=== PATIENT | female | born 1995 | race Caucasian/White ===

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

== ENCOUNTER 2017-03-02 00:13 | Emergency (ER) | payer OTHER ==
[~2017-03-02] VITALS: Ht 157.5 cm; Wt 68.0 kg
[2017-03-02 00:19] VITALS: BP 140/79
[2017-03-02] MEDS ORDERED: KEPP1TAB2 PO (00:24)
[2017-03-02] MEDS ORDERED: TIZA4CAP3 PO (00:24)
[2017-03-02] MEDS ORDERED: MELO7.5T6 PO (00:24)
== END 2017-03-02 02:05 | disposition left against medical advice (07) ==
LOC: M ED 02:03
DX: M54.5 Low back pain (principal); Z53.21 Procedure and treatment not carried out due to patient leaving prior to being seen by health care provider

== ENCOUNTER 2017-05-25 21:42 | Emergency (ER) | payer OTHER ==
[~2017-05-25] VITALS: Ht 154.9 cm; Wt 136.0 kg
[~2017-05-25 21:42] MED LIST: KEPP1TAB2 PO; MELO7.5T7 PO; TIZA4CAP3 PO
[2017-05-25] MEDS ORDERED: KEPP1TAB PO (23:44)
[2017-05-25] MEDS ORDERED: NORCOTAB PO (23:44)
[2017-05-25] MEDS ORDERED: NORCO 5/325MG TABLET (BULK FOR ED) PO ONE (23:45)
[2017-05-25] MEDS ORDERED: KEPP500T13 (23:47)
[2017-05-26] MEDS ORDERED: levETIRAcetam 250MG TABLET (KEPPRA) PO ONE
[2017-05-26 00:10] VITALS: BP 113/69
== END 2017-05-26 00:14 | disposition home or self-care (01) ==
LOC: M ED 21:42
DX: Z76.0 Encounter for issue of repeat prescription (principal); K01.1 Impacted teeth; G40.909 Epilepsy, unspecified, not intractable, without status epilepticus; Z79.899 Other long term (current) drug therapy; F17.210 Nicotine dependence, cigarettes, uncomplicated

== ENCOUNTER 2017-07-22 18:23 | Emergency (ER) | payer OTHER ==
[~2017-07-22] VITALS: Ht 152.4 cm; Wt 65.0 kg
[~2017-07-22 18:23] MED LIST changes: +KEPP1TAB PO; +KEPP500T13; +NORCOTAB PO
--- NOTE | 2017-07-22 20:00 | REPUSA ---
Clinical history: bleeding, cramping. Findings: Real-time transabdominal and transvaginal ultrasound images of the pelvis were obtained. An anteverted uterus is noted, measuring 8.7 x 4.2 x 4.4 cm. The uterus demonstrates normal echotexture and echogenicity. The endometrial stripe appears unremarkable, without a discrete gestational sac. T he right ovary measures 3.2 x 2.8 x 2.3 cm. The left ovary measures 4.3 x 2.6 x 3.4 cm. There is a co mplex left ovarian cyst measuring 2.1 x 1.5 x 2.2 cm. No adnexal masses are seen. Color Doppler flow is seen within both ovaries. There is no evidence of free fluid. Impression: 1. No evidence of an intrauterine gestational sac. 2. Complex likely hemorrhagic left ovarian cyst, possibly a corpus luteum cyst. 3. Differential diagnosis includes early , missed , or ectopic . Follow-up with serial serum beta hCG levels is recommended for further evaluation.
[2017-07-22 20:44] VITALS: BP 132/68
== END 2017-07-22 20:47 | disposition home or self-care (01) ==
LOC: M ED 18:23
DX: O34.81 Maternal care for other abnormalities of pelvic organs, first trimester (principal); N83.202 Unspecified ovarian cyst, left side; O99.331 Smoking (tobacco) complicating pregnancy, first trimester; F17.210 Nicotine dependence, cigarettes, uncomplicated; Z3A.01 Less than 8 weeks gestation of pregnancy

== ENCOUNTER → 2017-08-16 | Outpatient (CLI) | payer OTHER ==
[2017-08-16 18:14] LABS: BASO % 0.3 % (0.0-1.0); EOS # 0.1 10^3/uL (0.0-0.50); EOS % 0.7 % (0.0-3.0); IMMATURE GRANULOCYTE % 0.4 % (0-0); LYMPH # 2.4 10^3/uL (1.5-6.5); LYMPH % 17.7 % (24.0-44.0); MEAN CORPUSCULAR HEMOGLOBIN 29.3 pg (27.0-33.0); MEAN CORPUSCULAR HGB CONC 33.4 g/dl (32.0-36.5); MEAN CORPUSCULAR VOLUME 87.5 fl (80.0-96.0); MONO # 1.1 10^3/uL (0.0-0.8); MONO % 8.1 % (0.0-5.0); NEUTROPHILS # 9.7 10^3/uL (1.8-7.7); NEUTROPHILS % 72.8 % (36.0-66.0); PLATELET COUNT, AUTOMATED 328 10^3/uL (150-450); WHITE BLOOD COUNT 13.4 10^3/uL (4.0-10.0)
[2017-08-18 10:41] LABS: HBsAg Prenatal NEGATIVE (NEGATIVE)
== END ==
LOC: M SMT 14:45
PROVIDERS: ATTEND Obstetrics & Gynecology
DX: O30.041 Twin pregnancy, dichorionic/diamniotic, first trimester (principal); Z3A.01 Less than 8 weeks gestation of pregnancy

== ENCOUNTER → 2017-09-14 | Outpatient (CLI) | payer OTHER ==
--- NOTE | 2017-09-15 14:37 | REP ---
Clinical: Dating and viability. When gestation. Technique: Transabdominal first trimester obstetrical ultrasound with color Doppler evaluation. Findings: Diamniotic dichorionic twin gestation is appreciated. Twin A [place]-rump length of 6.2 cm corresponds to 12 weeks 4 days gestational age with estimated date of delivery 03/25/2018. heart rate equals 168 beats per minute. No gross abnormalities are identified. Twin B [place]-rump length of 5.9 cm corresponds to 12 weeks 3 days gestational age with estimated date of delivery 03/26/2018. heart rate equals 163 beats per minute. No gross abnormalities are identified. Impression: 1. Diamniotic dichorionic twin gestation measuring at approximately 12 weeks 3 days gestational age. No gross abnormalities are identified. 2. Complete anatomical assessment should be performed and 19-20 weeks. Signed by Severo English MD 09/15/2017 03:02 A
== END ==
LOC: M RAD 17:10
PROVIDERS: ATTEND Advanced Practice Midwife
DX: O30.041 Twin pregnancy, dichorionic/diamniotic, first trimester (principal); Z3A.12 12 weeks gestation of pregnancy

== ENCOUNTER → 2017-09-14 | Outpatient (REF) | payer OTHER | LOC: M LAB REF 16:52 | PROVIDERS: ATTEND Advanced Practice Midwife | DX: O30.041 Twin pregnancy, dichorionic/diamniotic, first trimester (principal); Z3A.13 13 weeks gestation of pregnancy ==

== ENCOUNTER 2017-10-27 15:31 | Emergency (ER) | payer OTHER ==
[2017-10-27 16:43] LABS: INFLUENZA A AMPLIFICATION NEGATIVE (NEGATIVE); INFLUENZA B AMPLIFICATION NEGATIVE (NEGATIVE)
[2017-10-27] MEDS: IPRATROPIUM 0.5MG/ALBUTEROL 2.5MG INH SOL UD 3ML (DUONEB)(J7620) NEB (17:13)
[2017-10-27] MEDS: ALBUTEROL SULFATE 2.5 MG/0.5 ML INH NEB SOLN NEB (17:13)
== END 2017-10-27 18:05 | disposition home or self-care (01) ==
LOC: M ED 15:31
DX: O99.511 Diseases of the respiratory system complicating pregnancy, first trimester (principal); J20.9 Acute bronchitis, unspecified; Z3A.10 10 weeks gestation of pregnancy
CPT/HCPCS: 71045

== ENCOUNTER → 2017-11-01 | Outpatient (CLI) | payer OTHER | LOC: M RAD 12:03 | DX: O30.042 Twin pregnancy, dichorionic/diamniotic, second trimester (principal); Z3A.19 19 weeks gestation of pregnancy | CPT/HCPCS: 76816 ==

== ENCOUNTER → 2017-11-24 | Outpatient (CLI) | payer OTHER | LOC: M RAD 18:14 | DX: Z34.02 Encounter for supervision of normal first pregnancy, second trimester (principal) | CPT/HCPCS: 76816 ==

== ENCOUNTER → 2017-12-06 | Outpatient (REF) | payer OTHER | LOC: M LAB REF 13:05 | DX: O30.042 Twin pregnancy, dichorionic/diamniotic, second trimester (principal) | CPT/HCPCS: 87086 ==

== ENCOUNTER 2017-12-11 10:15 | Outpatient (CLI) | payer OTHER ==
[2017-12-11] MEDS: LACTATED RINGER'S 1000 ML IV (10:59)
[2017-12-11] MEDS ORDERED: MAGNESIUM *L&D* 4 GM/100 ML BAG (40MG/ML) (J3475) As Ordered (11:11)
[2017-12-11] MEDS ORDERED: levETIRAcetam INJection 500 MG in D5W MINI-BAG PLUS 100 ML IV (11:15)
[2017-12-11] MEDS: levETIRAcetam INJection 500 MG in D5W MINI-BAG PLUS 100 ML IV ×2 (11:17→11:30)
[2017-12-11] MEDS: MAGNESIUM *L&D* 4 GM/100 ML BAG (40MG/ML) (J3475) IV (11:25)
[2017-12-11] MEDS ORDERED: MAGNESIUM SULFATE 4% INJ 20GM/500ML (40MG/ML) (J3475) As Ordered (11:26)
[2017-12-11 11:45] LABS: HEMATOCRIT 28.4 % (36.0-47.0); HEMOGLOBIN 9.8 g/dl (12.0-16.0); MEAN CORPUSCULAR HEMOGLOBIN 30.6 pg (27.0-33.0); MEAN CORPUSCULAR HGB CONC 34.5 g/dl (32.0-36.5); MEAN CORPUSCULAR VOLUME 88.8 fl (80.0-96.0); PLATELET COUNT, AUTOMATED 237 10^3/uL (150-450); RED CELL DISTRIBUTION WIDTH 13.9 % (11.5-14.5); WHITE BLOOD COUNT 16.2 10^3/uL (4.0-10.0)
[2017-12-11] MEDS: MAG Sulf (OBGYN) 20GM/500ML 20,000 MG in APPROPRIATE DILUENT 1 EA IV (11:45)
[2017-12-11] MEDS: LR 1,000 ML IV (11:48)
[2017-12-11 12:55] LABS: APPEARANCE, URINE CLEAR (CLEAR); BACTERIA, URINE AUTO NEGATIVE (NEGATIVE); BILIRUBIN, URINE AUTO NEGATIVE (NEGATIVE); BLOOD, URINE BLOOD NEGATIVE (NEGATIVE); COLOR, URINE COLORLESS (YELLOW); GLUCOSE, URINE (UA) AUTO NEGATIVE (NEGATIVE); KETONE, URINE AUTO NEGATIVE (NEGATIVE); LEUKOCYTE ESTERASE, URINE AUTO NEGATIVE (NEGATIVE); NITRITE, URINE AUTO NEGATIVE (NEGATIVE); PROTEIN, URINE AUTO NEGATIVE (NEGATIVE); RBC, URINE AUTO 1 /HPF (0-3); SQUAMOUS EPITHELIAL CELL UR AU 0 /HPF (0-6); UROBILINOGEN, URINE AUTO 0.2 mg/dL (0.0-2.0); WBC, URINE AUTO 0 /HPF (0-3)
[2017-12-11 13:18] LABS: AMPHETAMINES URINE REFLEX NEGATIVE (NEGATIVE); BARBITURATES URINE REFLEX NEGATIVE (NEGATIVE); BENZODIAZEPINES URINE REFLEX NEGATIVE (NEGATIVE); CANNABINOIDS URINE REFLEX NEGATIVE (NEGATIVE); COCAINE METABOLITE URINE REFLE NEGATIVE (NEGATIVE); METHADONE URINE REFLEX NEGATIVE (NEGATIVE); OPIATES URINE REFLEX NEGATIVE (NEGATIVE); PHENCYCLIDINE URINE REFLEX NEGATIVE (NEGATIVE)
[2017-12-11 14:22] LABS: CHLAMYDIA DNA AMPLIFICATION NEGATIVE (NEGATIVE); GC DNA AMPLIFICATION NEGATIVE (NEGATIVE)
[2017-12-11] MEDS: ACETAMINOPHEN 500 MG TAB PO (17:50)
== END 2017-12-11 18:24 | disposition home or self-care (01) ==
LOC: M LDO 10:15
DX: O30.042 Twin pregnancy, dichorionic/diamniotic, second trimester (principal); Z3A.24 24 weeks gestation of pregnancy; O99.352 Diseases of the nervous system complicating pregnancy, second trimester; G40.909 Epilepsy, unspecified, not intractable, without status epilepticus; E03.9 Hypothyroidism, unspecified; J45.909 Unspecified asthma, uncomplicated; O99.512 Diseases of the respiratory system complicating pregnancy, second trimester; O99.332 Smoking (tobacco) complicating pregnancy, second trimester; Z79.899 Other long term (current) drug therapy; O99.282 Endocrine, nutritional and metabolic diseases complicating pregnancy, second trimester
CPT/HCPCS: J3475

== ENCOUNTER 2017-12-18 19:53 | Emergency (ER) | payer OTHER ==
[2017-12-18 20:15] LABS: BASO # 0.1 10^3/uL (0.0-0.2); BASO % 0.3 % (0.0-1.0); EOS # 0.3 10^3/uL (0.0-0.50); EOS % 1.6 % (0.0-3.0); HEMOGLOBIN 10.2 g/dl (12.0-16.0); IMMATURE GRANULOCYTE % 1.7 % (0-3.0); LYMPH # 2.3 10^3/uL (1.5-6.5); LYMPH % 12.8 % (24.0-44.0); MEAN CORPUSCULAR HEMOGLOBIN 30.9 pg (27.0-33.0); MEAN CORPUSCULAR VOLUME 90.9 fl (80.0-96.0); MONO # 0.9 10^3/uL (0.0-0.8); NEUTROPHILS # 13.9 10^3/uL (1.8-7.7); NEUTROPHILS % 78.6 % (36.0-66.0); PLATELET COUNT, AUTOMATED 214 10^3/uL (150-450); RED CELL DISTRIBUTION WIDTH 13.7 % (11.5-14.5); WHITE BLOOD COUNT 17.7 10^3/uL (4.0-10.0)
[2017-12-18 20:37] LABS: KETONE, URINE AUTO RFX NEGATIVE (NEGATIVE); NITRITE, URINE AUTO RFX NEGATIVE (NEGATIVE); RBC, URINE AUTO RFX 6 /HPF (0-3); SPECIFIC GRAVITY UR AUTO RFX 1.011 (1.002-1.035); SQUAM EPITHELIAL CELL UR AURFX 11 /HPF (0-6); WBC, URINE AUTO RFX 8 /HPF (0-3)
[2017-12-18 20:39] LABS: ALBUMIN 2.7 GM/DL (3.2-5.2); ALBUMIN/GLOBULIN RATIO 0.66 (1.00-1.93); ALKALINE PHOSPHATASE 160 U/L (45-117); ALT/SGPT 11 U/L (12-78); ANION GAP 10 MEQ/L (8-16); AST/SGOT 24 U/L (7-37); BILIRUBIN,DIRECT < 0.1 MG/DL (0.0-0.2); BILIRUBIN,TOTAL 0.2 MG/DL (0.2-1.0); BLOOD UREA NITROGEN 3 MG/DL (7-18); CALCIUM LEVEL 8.4 MG/DL (8.5-10.1); CARBON DIOXIDE LEVEL 20 MEQ/L (21-32); CHLORIDE LEVEL 111 MEQ/L (98-107); GLUCOSE, FASTING 74 MG/DL (70-100); POTASSIUM SERUM 3.8 MEQ/L (3.5-5.1); SODIUM LEVEL 141 MEQ/L (136-145); TOTAL PROTEIN 6.8 GM/DL (6.4-8.2)
[2017-12-18 20:47] LABS: LEUKOCYTE ESTERASE UR AUTO RFX 3+ (NEGATIVE)
[2017-12-18] MEDS: levETIRAcetam 250MG TABLET (KEPPRA) PO (21:01)
[2017-12-18] MEDS: NITROFURANTOIN (MACROBID) 100 MG CAP PO (21:01)
== END 2017-12-18 21:10 | disposition admitted as inpatient to this hospital (09) ==
LOC: M ED 19:53
DX: O99.352 Diseases of the nervous system complicating pregnancy, second trimester (principal); G40.319 Generalized idiopathic epilepsy and epileptic syndromes, intractable, without status epilepticus; O23.42 Unspecified infection of urinary tract in pregnancy, second trimester; Z3A.26 26 weeks gestation of pregnancy; O99.332 Smoking (tobacco) complicating pregnancy, second trimester; F17.210 Nicotine dependence, cigarettes, uncomplicated; Z79.899 Other long term (current) drug therapy
CPT/HCPCS: 80076

== ENCOUNTER 2017-12-18 21:11 | Outpatient (CLI) | payer OTHER | END 2017-12-18 21:55 | disposition home or self-care (01) | LOC: M LDO 21:11 | DX: O99.89 Other specified diseases and conditions complicating pregnancy, childbirth and the puerperium (principal); Z3A.25 25 weeks gestation of pregnancy; O30.042 Twin pregnancy, dichorionic/diamniotic, second trimester; O99.332 Smoking (tobacco) complicating pregnancy, second trimester; F17.210 Nicotine dependence, cigarettes, uncomplicated; O99.352 Diseases of the nervous system complicating pregnancy, second trimester; O99.342 Other mental disorders complicating pregnancy, second trimester; O99.512 Diseases of the respiratory system complicating pregnancy, second trimester; G40.319 Generalized idiopathic epilepsy and epileptic syndromes, intractable, without status epilepticus; O23.42 Unspecified infection of urinary tract in pregnancy, second trimester; J45.909 Unspecified asthma, uncomplicated; F31.9 Bipolar disorder, unspecified; Z91.14 Patient's other noncompliance with medication regimen; Z79.899 Other long term (current) drug therapy ==

== ENCOUNTER → 2017-12-28 | Outpatient (CLI) | payer OTHER | LOC: M RAD 13:00 | DX: Z36.9 Encounter for antenatal screening, unspecified (principal); O30.042 Twin pregnancy, dichorionic/diamniotic, second trimester; Z3A.27 27 weeks gestation of pregnancy | CPT/HCPCS: 76816 ==

== ENCOUNTER 2018-01-01 12:07 | Outpatient (CLI) | payer OTHER | END 2018-01-01 13:18 | disposition home or self-care (01) | LOC: M LDO 12:07 | DX: O36.8120 Decreased fetal movements, second trimester, not applicable or unspecified (principal); Z3A.27 27 weeks gestation of pregnancy ==

== ENCOUNTER 2018-01-17 22:52 | Inpatient (IN) | payer OTHER ==
[2018-01-18] MEDS ORDERED: LR 1,000 ML IV
[2018-01-18] MEDS ORDERED: MAGNESIUM *L&D* 4 GM/100 ML BAG (40MG/ML) (J3475) As Ordered (00:02)
[2018-01-18] MEDS: BETAMETHASONE SOLUSPAN 6MG/ML INJ 5ML (J0702) IM (00:15)
[2018-01-18] MEDS: LACTATED RINGER'S 1000 ML IV (00:15)
[2018-01-18] MEDS: MAG Sulf (L&D) 4 GM/100 ML 4 GM in APPROPRIATE DILUENT 1 EA IV (00:15)
[2018-01-18] MEDS ORDERED: MAG Sulf (OBGYN) 20GM/500ML 20,000 MG in APPROPRIATE DILUENT 1 EA IV (00:26)
[2018-01-18 00:35] LABS: HEMATOCRIT 41.2 % (36.0-47.0); HEMOGLOBIN 13.8 g/dl (12.0-15.5); MEAN CORPUSCULAR HEMOGLOBIN 29.7 pg (27.0-33.0); MEAN CORPUSCULAR HGB CONC 33.5 g/dl (32.0-36.5); MEAN CORPUSCULAR VOLUME 88.8 fl (80.0-96.0); PLATELET COUNT, AUTOMATED 173 10^3/uL (150-450); RED BLOOD COUNT 4.64 10^6/uL (4.00-5.40); WHITE BLOOD COUNT 15.1 10^3/uL (4.0-10.0)
[2018-01-18] MEDS: BICITRA 30ML SOLN UDC PO (00:36)
[2018-01-18 01:19] LABS: AMPHETAMINES URINE REFLEX NEGATIVE (NEGATIVE); BARBITURATES URINE REFLEX NEGATIVE (NEGATIVE); BENZODIAZEPINES URINE REFLEX NEGATIVE (NEGATIVE); CANNABINOIDS URINE REFLEX NEGATIVE (NEGATIVE); COCAINE METABOLITE URINE REFLE NEGATIVE (NEGATIVE); METHADONE URINE REFLEX NEGATIVE (NEGATIVE); OPIATES URINE REFLEX NEGATIVE (NEGATIVE); PHENCYCLIDINE URINE REFLEX NEGATIVE (NEGATIVE)
[2018-01-18 01:33] LABS: CORD GAS ABE A -4.7; CORD GAS ABE V -2.7; CORD GAS HCO3 A 21.6 MEQ/L; CORD GAS HCO3 V 23.6 MEQ/L; CORD GAS O2 SAT A 21.5 %; CORD GAS O2 SAT V 39.6 %; CORD GAS PCO2 A 44.6 mmHg; CORD GAS PCO2 V 46.4 mmHg; CORD GAS PH A 7.303 UNITS; CORD GAS PH V 7.324 UNITS; CORD GAS PO2 A 12.6 mmHg
[2018-01-18 01:37] LABS: CORD GAS ABE A -2.7; CORD GAS ABE V -4.7; CORD GAS HCO3 A 23.3 MEQ/L; CORD GAS HCO3 V 20.1 MEQ/L; CORD GAS O2 SAT A 52.8 %; CORD GAS PCO2 A 44.8 mmHg; CORD GAS PCO2 V 36.8 mmHg; CORD GAS PH A 7.334 UNITS; CORD GAS PH V 7.355 UNITS; CORD GAS PO2 A 20.3 mmHg; CORD GAS SBC A 21.2 MEQ/L; CORD GAS SBC V 19.9 MEQ/L; CORD GAS TCO2 A 24.7 MEQ/L; CORD GAS TCO2 V 21.2 MEQ/L
[2018-01-18] MEDS ORDERED: RHOGAM 300 MCG (1500 IU) INJ (J2790) IM (01:45)
[2018-01-18] MEDS ORDERED: MEASLES,MUMPS,RUBELLA VACCINE INJ (MMR-II) (90707) SC (01:45)
[2018-01-18] MEDS: LR 1,000 ML IV ×4 (02:00→17:40)
[2018-01-18] MEDS ORDERED: fentaNYL 100 MCG/2 ML INJECTION (J3010) IV (02:00)
[2018-01-18] MEDS ORDERED: NALBUPHINE HCL 10 MG/ML AMP (J2300) IV (02:00)
[2018-01-18] MEDS ORDERED: ONDANSETRON 4MG/2ML VIAL (J2405) IV ×2 (02:00)
[2018-01-18] MEDS ORDERED: METOCLOPRAMIDE INJ 10MG/2ML VIAL (J2765) IV (02:00)
[2018-01-18] MEDS ORDERED: NALOXONE INJ 0.4 MG/1 ML VIAL (J2310) IV ×2 (02:00)
[2018-01-18] MEDS ORDERED: KETOROLAC 30 MG/ML VIAL (J1885) As Ordered (02:17)
[2018-01-18] MEDS ORDERED: ONDANSETRON 4MG/2ML VIAL (J2405) As Ordered (02:17)
[2018-01-18] MEDS: KETOROLAC 30 MG/ML VIAL (J1885) IV ×4 (02:29→20:48)
[2018-01-18] MEDS: ONDANSETRON 4MG/2ML VIAL (J2405) IV (02:29)
[2018-01-18] MEDS: NALBUPHINE HCL 10 MG/ML AMP (J2300) IV (03:44)
[2018-01-18] MEDS: PERCOCET 5MG/325MG TAB PO ×2 (06:31→17:58)
[2018-01-18] MEDS: PRENATAL VITAMINS CHEWABLE TABLET PO (08:27)
[2018-01-18] MEDS: levETIRAcetam 250MG TABLET (KEPPRA) PO ×2 (09:20→20:48)
[2018-01-19] MEDS: PERCOCET 5MG/325MG TAB PO ×2 (02:37→08:32)
[2018-01-19] MEDS: IBUPROFEN 800 MG TAB PO (04:52)
[2018-01-19 07:06] LABS: HEMATOCRIT 23.4 % (36.0-47.0); MEAN CORPUSCULAR HEMOGLOBIN 30.2 pg (27.0-33.0); MEAN CORPUSCULAR HGB CONC 32.9 g/dl (32.0-36.5); MEAN CORPUSCULAR VOLUME 91.8 fl (80.0-96.0); PLATELET COUNT, AUTOMATED 199 10^3/uL (150-450); RED BLOOD COUNT 2.55 10^6/uL (4.00-5.40); RED CELL DISTRIBUTION WIDTH 13.8 % (11.5-14.5); WHITE BLOOD COUNT 18.9 10^3/uL (4.0-10.0)
[2018-01-19 07:11] LABS: HEMOGLOBIN 7.7 g/dl (12.0-15.5)
[2018-01-19] MEDS: PRENATAL VITAMINS CHEWABLE TABLET PO (08:31)
[2018-01-19] MEDS: levETIRAcetam 250MG TABLET (KEPPRA) PO (08:32)
== END 2018-01-19 10:30 | disposition home or self-care (01) | DRG 540 ==
LOC: M LDO 22:52 → M OBS 01-18 03:15 → M LDI 23:57
PROVIDERS: Advanced Practice Midwife
PROC: 10D00Z1 Extraction of Products of Conception, Low, Open Approach (ICD-10-PCS; principal; 2018-01-18 00:42)
DX: O60.14X0 Preterm labor third trimester with preterm delivery third trimester, not applicable or unspecified (principal); O99.354 Diseases of the nervous system complicating childbirth; Z37.2 Twins, both liveborn; O30.043 Twin pregnancy, dichorionic/diamniotic, third trimester; O99.284 Endocrine, nutritional and metabolic diseases complicating childbirth; Z3A.29 29 weeks gestation of pregnancy; O32.1XX0 Maternal care for breech presentation, not applicable or unspecified; G40.909 Epilepsy, unspecified, not intractable, without status epilepticus; Z91.19 Patient's noncompliance with other medical treatment and regimen; E03.9 Hypothyroidism, unspecified; F17.200 Nicotine dependence, unspecified, uncomplicated; O99.334 Smoking (tobacco) complicating childbirth; Z79.899 Other long term (current) drug therapy

== ENCOUNTER → 2018-04-21 | Outpatient (REF) | payer OTHER ==
[2018-04-21 17:10] LABS: APPEARANCE, URINE HAZY (CLEAR); BACTERIA, URINE AUTO NEGATIVE (NEGATIVE); BILIRUBIN, URINE AUTO NEGATIVE (NEGATIVE); BLOOD, URINE BLOOD 2+ (NEGATIVE); COLOR, URINE YELLOW (YELLOW); GLUCOSE, URINE (UA) AUTO NEGATIVE (NEGATIVE); KETONE, URINE AUTO NEGATIVE (NEGATIVE); LEUKOCYTE ESTERASE, URINE AUTO NEGATIVE (NEGATIVE); MUCUS, URINE SMALL (NEGATIVE); NITRITE, URINE AUTO NEGATIVE (NEGATIVE); PROTEIN, URINE AUTO NEGATIVE (NEGATIVE); RBC, URINE AUTO 4 /HPF (0-3); SQUAMOUS EPITHELIAL CELL UR AU 3 /HPF (0-6); UROBILINOGEN, URINE AUTO 0.2 mg/dL (0.0-2.0); WBC, URINE AUTO 2 /HPF (0-3)
== END ==
LOC: M LAB REF 16:38
DX: N39.0 Urinary tract infection, site not specified (principal)

== ENCOUNTER 2018-11-01 14:43 | Emergency (ER) | payer OTHER ==
[~2018-11-01] VITALS: Ht 157.5 cm; Wt 65.0 kg
[2018-11-01 14:43] VITALS: BP 136/71
[~2018-11-01 14:43] MED LIST changes: +AUGM875T28 PO; +COLA100C5 PO; +FERR1TAB8; +FOLI1TAB11 PO; +IBUP-1114 PO; +IPRA0.00 IN; +Levetiracetam PO; +MACR100C43 PO; +MUCI600T37 PO; +OXYC1TAB23 PO; +PRENTAB9 PO; +SLEE25TA; +TIZA4CAP PO; -TIZA4CAP3 PO; +ZOFR4TAB14 PO
[2018-11-01] MEDS ORDERED: LEVE750T5 (14:50)
[2018-11-01] MEDS ORDERED: [UNRECOGNIZED DRUG - MIXTURE] (14:50)
[2018-11-01] MEDS ORDERED: AMOX875T2 (14:50)
== END 2018-11-01 16:30 | disposition left against medical advice (07) ==
LOC: M ED 14:43
DX: Z53.21 Procedure and treatment not carried out due to patient leaving prior to being seen by health care provider (principal)

== ENCOUNTER 2019-02-08 21:49 | Emergency (ER) | payer OTHER ==
[~2019-02-08] VITALS: Ht 160 cm; Wt 72.7 kg
[~2019-02-08 21:49] MED LIST changes: +AMOX875T2; +HYDR-3715 PO; +LEVE750T5; -NORCOTAB PO; +[UNRECOGNIZED DRUG - MIXTURE]
[2019-02-08] MEDS ORDERED: ZITHTAB PO (23:27)
[2019-02-08] MEDS ORDERED: CLAR5TAB7 PO (23:27)
[2019-02-08] MEDS ORDERED: PROAAER10 INH (23:27)
[2019-02-08] MEDS ORDERED: LORATADINE 10 MG TAB PO ONE (23:30)
[2019-02-08] MEDS ORDERED: AZITHROMYCIN 250 MG TAB PO ONE (23:30)
[2019-02-08 23:43] VITALS: BP 132/75
== END 2019-02-08 23:45 | disposition home or self-care (01) ==
LOC: M ED 21:49
DX: J01.90 Acute sinusitis, unspecified (principal); J06.9 Acute upper respiratory infection, unspecified; Z72.0 Tobacco use; Z79.899 Other long term (current) drug therapy

== ENCOUNTER 2019-04-15 01:31 | Emergency (ER) | payer OTHER ==
[~2019-04-15] VITALS: Ht 157.5 cm; Wt 70.0 kg
[~2019-04-15 01:31] MED LIST changes: +CLAR5TAB7 PO; +PROAAER10 INH; +ZITHTAB PO
[2019-04-15 02:10] LABS: BASO % 0.2 % (0.0-1.0); EOS % 0.2 % (0.0-3.0); HEMATOCRIT 39.9 % (36.0-47.0); HEMOGLOBIN 13.3 g/dl (12.0-15.5); LYMPH # 2.1 10^3/uL (1.5-6.5); LYMPH % 14.8 % (24.0-44.0); MEAN CORPUSCULAR HEMOGLOBIN 29.2 pg (27.0-33.0); MEAN CORPUSCULAR HGB CONC 33.3 g/dl (32.0-36.5); MEAN CORPUSCULAR VOLUME 87.5 fl (80.0-96.0); MONO # 0.8 10^3/uL (0.0-0.8); MONO % 5.3 % (0.0-5.0); NEUTROPHILS # 11.2 10^3/uL (1.8-7.7); NEUTROPHILS % 79.1 % (36.0-66.0); PLATELET COUNT, AUTOMATED 264 10^3/uL (150-450); RED BLOOD COUNT 4.56 10^6/uL (4.00-5.40); WHITE BLOOD COUNT 14.2 10^3/uL (4.0-10.0)
[2019-04-15 02:52] LABS: BLOOD UREA NITROGEN 5 MG/DL (7-18); CALCIUM LEVEL 9.3 MG/DL (8.5-10.1); CARBON DIOXIDE LEVEL 22 MEQ/L (21-32); CHLORIDE LEVEL 109 MEQ/L (98-107); CREATININE FOR GFR 0.63 MG/DL (0.55-1.30); GLOMERULAR FILTRATION RATE > 60.0 (>60); GLUCOSE, FASTING 107 MG/DL (70-100); HCG, SERUM QUANTITATIVE 14638 MIU/ML; POTASSIUM SERUM 3.3 MEQ/L (3.5-5.1); SODIUM LEVEL 141 MEQ/L (136-145)
[2019-04-15 03:47] VITALS: BP 129/74
--- NOTE | 2019-04-15 04:45 | REPVR ---
EXAM: US , Transvaginal EXAM DATE/TIME: 04/15/2019 2:20 AM CLINICAL HISTORY: 24 years old, female; complicated by abdominal or pelvic pain; Lower; First trimester; Gestational age or lmp: 6w 4d; ; Patient HX: Patient states no vaginal bleeding just pain, vaginal bleeding entered for reason by nurse TECHNIQUE: Imaging protocol: Real-time transvaginal obstetrical ultrasound of the maternal pelvis and a first trimester with image documentation. Transvaginal imaging was used for better evaluation of the fetus and adnexa. Other technique: Transabdominal imaging was attempted, but the pelvic organs were not well-visualized due to body habitus. COMPARISON: No relevant prior studies available. FINDINGS: GESTATION: Gestation: There is an intrauterine gestational sac. A yolk sac and a pole are present. There is a hypoechoic area adjacent to the gestational sac, measuring 1.0 x 0.5 x 1.7 cm, consistent with a small hemorrhage. Heart rate: The heartbeat was detected with a rate of 136 beats per minute. BIOMETRY: Estimated gestational age: The estimated gestational ages 6 weeks 4 days, based on crown-rump length. [place]-Rump length: The average crown-rump length measurement is 0.71 cm, corresponding to a 6 week 4 day gestation. Estimated due date: The estimated due date by ultrasound measurement is 12/05/2019. MATERNAL: Uterus: The uterus is retroverted. Right adnexa: The right ovary appears unremarkable and measures 2.5 x 1.8 x 1.5 cm. Normal blood flow is seen on color and pulsed Doppler imaging. Left adnexa: Within the left ovary, there is a hypoechoic area with a central anechoic space and prominent peripheral blood flow, measuring 1.9 x 1.3 x 1.2 cm and consistent with a corpus luteum. The left ovary itself measures 2.7 x 2.0 x 2.6 cm. Normal blood flow is seen on color and pulsed Doppler imaging. Intraperitoneal: No free fluid is identified. IMPRESSION: 1. Single, live intrauterine . Estimated gestational age is 6 weeks 4 days, based on crown-rump length, which is concordant with age by dates. 2. Small hypoechoic area adjacent to the gestational sac, consistent with small hemorrhage. Interval followup recommended as clinically indicated. Electronically signed by: Karina Rice On 04/15/2019 04:45:28 AM
== END 2019-04-15 04:31 | disposition left against medical advice (07) ==
LOC: M ED 01:31
DX: R10.2 Pelvic and perineal pain (principal); Z53.21 Procedure and treatment not carried out due to patient leaving prior to being seen by health care provider

== ENCOUNTER → 2019-04-27 | Outpatient (REF) | payer OTHER | LOC: M LAB REF 17:53 | PROVIDERS: ATTEND Advanced Practice Midwife | DX: Z12.4 Encounter for screening for malignant neoplasm of cervix (principal) ==

== ENCOUNTER → 2019-05-25 | Outpatient (CLI) | payer OTHER ==
[2019-05-26 10:33] LABS: BASO % 0.3 % (0.0-1.0); EOS # 0.1 10^3/uL (0.0-0.50); EOS % 1.2 % (0.0-3.0); HEMATOCRIT 37.4 % (36.0-47.0); HEMOGLOBIN 12.7 g/dl (12.0-15.5); LYMPH # 2.2 10^3/uL (1.5-6.5); LYMPH % 19.5 % (24.0-44.0); MEAN CORPUSCULAR HEMOGLOBIN 30.5 pg (27.0-33.0); MEAN CORPUSCULAR VOLUME 89.9 fl (80.0-96.0); MONO # 0.8 10^3/uL (0.0-0.8); MONO % 6.5 % (0.0-5.0); NEUTROPHILS # 8.3 10^3/uL (1.8-7.7); NEUTROPHILS % 72.1 % (36.0-66.0); PLATELET COUNT, AUTOMATED 234 10^3/uL (150-450); RED BLOOD COUNT 4.16 10^6/uL (4.00-5.40); WHITE BLOOD COUNT 11.5 10^3/uL (4.0-10.0)
[2019-05-26 11:27] LABS: HIV 1&2 SCREEN CENTAUR NEGATIVE (NEGATIVE); RUBELLA IgG QUALITATIVE IMMUNE (IMMUNE)
[2019-05-26 12:18] LABS: CHLAMYDIA DNA AMPLIFICATION NEGATIVE (NEGATIVE); GC DNA AMPLIFICATION NEGATIVE (NEGATIVE)
== END ==
LOC: M SMT 14:48
PROVIDERS: ATTEND Advanced Practice Midwife
DX: Z34.80 Encounter for supervision of other normal pregnancy, unspecified trimester (principal)

== ENCOUNTER → 2019-07-03 | Outpatient (CLI) | payer OTHER ==
--- NOTE | 2019-07-03 13:50 | REP ---
OB ULTRASOUND: Real-time sonographic evaluation of the gravid uterus performed. There is a single intrauterine gestation with an estimated gestational age 17 weeks 6 days with EDC 12/05/2019. Today's measurements indicate appropriate growth. Biometry and Growth: BPD 42 mm = 18 weeks 4 days, 70th percentile HC 159 mm = 18 weeks 5 days, 75th percentile AC 136 mm = 19 weeks 0 days, 75th percentile FL 27 mm = 18 weeks 1 day, 57th percentile HC/AC ratio 1.17 within normal range. Estimated weight 250 grams, 78th percentile. SEEN/GROSSLY UNREMARKABLE Lateral ventricles Yes Posterior fossa Yes Upper lip Yes Four-chamber heart No LVOT No RVOT No Stomach Yes Cord insertion Yes Three vessel cord Yes Kidneys Yes Bladder Yes Spine Yes Cervical length: Closed and measures 3.5 cm in length. heart rate: 161 beats per minute. position: Breech Placenta: Posterior and grade 1 with no previa or abruption. Amniotic fluid: Within normal limits. Electronically Signed by Harry Trimble MD 07/03/2019 11:38 P
== END ==
LOC: M RAD 11:16
PROVIDERS: ATTEND Obstetrics & Gynecology
DX: Z34.82 Encounter for supervision of other normal pregnancy, second trimester (principal)

== ENCOUNTER → 2019-07-24 | Outpatient (REF) | payer OTHER | LOC: M LAB REF 16:48 | PROVIDERS: ATTEND Advanced Practice Midwife | DX: O34.211 Maternal care for low transverse scar from previous cesarean delivery (principal); Z3A.00 Weeks of gestation of pregnancy not specified ==

== ENCOUNTER → 2019-07-27 | Outpatient (CLI) | payer OTHER ==
--- NOTE | 2019-07-27 08:51 | REP ---
Clinical: Anatomical evaluation. Comparison: 07/03/2019 . Findings: Examination demonstrates a single live intrauterine in breech presentation. motion is identified by technologist. Placenta is noted posterior and grade I without evidence for placenta previa or abruption. Amniotic fluid volume is normal. Cervix measures 3.7 cm in length and appears closed. No evidence for nuchal cord. Gestational age by LMP 21 weeks 2 days with KAEL 12/05/2019 . Gestational age by current measurements 22 weeks 5 days with KAEL 11/25/2019 . FHR equals 150 beats per minute. Estimated weight 525 grams ( 95th percentile). Anatomical assessment demonstrates normal structures including cranium, choroid plexus, cavum, cerebellum/posterior fossa, facial features, lungs, four-chamber heart, diaphragm, stomach, cord insertion/three-vessel cord, kidneys/bladder, spine, and extremities. Impression: 1. Single live intrauterine in breech presentation demonstrating appropriate interval growth. 2. Limited evaluation of the cardiac ventricular outflow tracts due to positioning again noted. Remainder of the anatomical assessment is complete and normal. Electronically Signed by Severo English MD 07/27/2019 08:43 A
== END ==
LOC: M RAD 07:35
PROVIDERS: ATTEND Advanced Practice Midwife
DX: O34.211 Maternal care for low transverse scar from previous cesarean delivery (principal); O32.1XX0 Maternal care for breech presentation, not applicable or unspecified; Z3A.21 21 weeks gestation of pregnancy

== ENCOUNTER 2019-09-06 13:36 | Outpatient (CLI) | payer OTHER ==
[~2019-09-06] VITALS: Ht 157.5 cm; Wt 89.9 kg
[2019-09-06 14:08] VITALS: BP 104/57
[2019-09-06 16:25] VITALS: BP 128/60
--- NOTE | 2019-09-06 17:39 | IPN ---
DATE: 09/06/2019 Ladan is a 24-year-old 3, para 0-2-1-2 at 27 weeks gestation, estimated date of confinement (EDC) of 12/04/2019 based on last menstrual period and confirmed by first trimester ultrasound. She presents to labor and delivery with complaints of generalized fatigue and low back pain. The patient denies any regular painful contractions, vaginal bleeding, leakage of fluid. The fetus has been active. She reports that she has been ill with an upper respiratory infection since Wednesday, approximately 5 days ago, she just feels generally unwell. Her care [facility] at [facility] in the first [facility]. course complicated by history of seizure disorder. She has been on Keppra twice a day, labor with section, tobacco use, asthma, Clara for labor, and obesity. OBSTETRIC HISTORY: March 2015, spontaneous miscarriage. December 2017, 29 weeks and 3/7 days labor, delivery, twins, males, 3 pounds 4 ounces and 3 pounds 6 ounces, via section. OBSTETRIC LABORATORIES: O positive, antibody screen negative. Rubella immune. Venereal disease research laboratory test (VDRL) nonreactive. Hepatitis B surface antigen negative. HIV negative. Hepatitis C antibody nonreactive. Gonorrhea and chlamydia negative. Urine culture with Escherichia (E) coli, test of cure pending. PAST MEDICAL HISTORY: 1. Epilepsy. 2. She reports a history of hyperthyroid, however, she is not on any medications and her TSH was normal. 3. Asthma. SURGERIES: 1. section. 2. Tonsil abscess removed. FAMILY HISTORY: Noncontributory. SOCIAL HISTORY: The patient is single but there is a partner at bedside, uncertain if he is the father of the baby. She is a smoker. Denies alcohol or drug use. No history of any sexually transmitted infections. ALLERGIES: No known drug allergies. CURRENT MEDICATIONS: - Zoloft - Clara - albuterol inhaler - Keppra 750 - vitamin OBJECTIVE: Temperature 98.6, pulse 88, respirations 20. She does not appear in any distress. She does appear fatigued. heart rate is 150 with appropriate for gestational age. There is no pattern of contractions. Sterile vaginal examination: Fingertip, thick, posterior, firm. ASSESSMENT: 1. Intrauterine at 27 weeks. 2. heart rate appropriate for gestational age. 3. Upper respiratory infection. PLAN: Revealed palliative measures to cope with upper respiratory viral infection. She is to keep her next scheduled appointment. Her and her partner have had their questions answered and are agreeable to discharge to home to recover expectantly.
== END 2019-09-06 16:24 | disposition home or self-care (01) ==
LOC: M LDO 13:36
PROVIDERS: ATTEND Advanced Practice Midwife
DX: O99.512 Diseases of the respiratory system complicating pregnancy, second trimester (principal); J06.9 Acute upper respiratory infection, unspecified; O99.89 Other specified diseases and conditions complicating pregnancy, childbirth and the puerperium; M54.5 Low back pain; O99.332 Smoking (tobacco) complicating pregnancy, second trimester; F17.210 Nicotine dependence, cigarettes, uncomplicated; Z3A.27 27 weeks gestation of pregnancy

== ENCOUNTER 2019-09-30 17:50 | Outpatient (CLI) | payer OTHER ==
[~2019-09-30] VITALS: Ht 154.9 cm; Wt 90.1 kg
[2019-09-30 18:02] VITALS: BP 127/69
== END 2019-09-30 18:38 | disposition home or self-care (01) ==
LOC: M LDO 17:50
PROVIDERS: ATTEND Obstetrics & Gynecology
DX: O36.8130 Decreased fetal movements, third trimester, not applicable or unspecified (principal); Z3A.31 31 weeks gestation of pregnancy

== ENCOUNTER → 2019-11-06 | Outpatient (REF) | payer OTHER ==
[~2019-11-06] MED LIST changes: -LEVE750T5; +LEVE750T5 PO
== END ==
LOC: M SFHCWAGY 16:47
PROVIDERS: ATTEND Specialist
DX: Z34.83 Encounter for supervision of other normal pregnancy, third trimester (principal); Z36.85 Encounter for antenatal screening for Streptococcus B

== ENCOUNTER 2019-11-16 21:03 | Inpatient (IN) | payer OTHER ==
[~2019-11-16] VITALS: Ht 157.5 cm; Wt 92.0 kg
[2019-11-16 23:41] LABS: HEMATOCRIT 34.8 % (36.0-47.0); HEMOGLOBIN 11.5 g/dl (12.0-15.5); MEAN CORPUSCULAR VOLUME 87.7 fl (80.0-96.0); PLATELET COUNT, AUTOMATED 296 10^3/uL (150-450); RED BLOOD COUNT 3.97 10^6/uL (4.00-5.40); WHITE BLOOD COUNT 19.6 10^3/uL (4.0-10.0)
[2019-11-17] MEDS ORDERED: LR 1,000 ML IV SCH ×2 (03:16→05:00)
[2019-11-17] MEDS ORDERED: LACTATED RINGER'S 1000 ML IV STA (03:16)
[2019-11-17] MEDS ORDERED: AZITHROMYCIN INJ 500 MG, VIAL MATE ADAPTER 1 EACH in D5W 250 ML IV ONE (03:30)
[2019-11-17] MEDS ORDERED: ceFAZolin SOD 2 GM in IV 1 EA IV ONE (03:30)
[2019-11-17] MEDS ORDERED: BICITRA 30ML SOLN UDC PO ONE (03:30)
[2019-11-17] MEDS ORDERED: MORPHINE PRES-FREE INJ 10 MG/10 ML VIAL (J2274) As Ordered ONE (04:02)
[2019-11-17] MEDS ORDERED: OXYTOCIN INJ 10 UNITS/ML VIAL (J2590) As Ordered ONE (04:02)
[2019-11-17] MEDS ORDERED: ONDANSETRON 4MG/2ML VIAL (J2405) As Ordered ONE (04:07)
[2019-11-17] MEDS ORDERED: PHENYLephrine HCL 500 MCG/5 ML (100MCG/ML) SYRINGE (J2370) As Ordered ONE (04:16)
[2019-11-17] MEDS ORDERED: ONDANSETRON 4MG/2ML VIAL (J2405) IV PRN ×2 (05:00→05:30)
[2019-11-17] MEDS ORDERED: ACETAMINOPHEN 500 MG TAB PO PRN (05:00)
[2019-11-17] MEDS ORDERED: PERCOCET 5MG/325MG TAB PO PRN ×3 (05:00→05:30)
[2019-11-17] MEDS ORDERED: MEASLES,MUMPS,RUBELLA VACCINE INJ (MMR-II) (90707) SC SCH (05:00)
[2019-11-17] MEDS ORDERED: OXYTOCIN DRIP 30 UNITS in IV 1 EA IV SCH (05:00)
[2019-11-17] MEDS ORDERED: PROMETHAZINE 25 MG TAB PO PRN (05:00)
[2019-11-17] MEDS ORDERED: RHOGAM 300 MCG (1500 IU) INJ (J2790) IM SCH (05:00)
[2019-11-17] MEDS ORDERED: DOCU100C16 PO (05:14)
[2019-11-17] MEDS ORDERED: PERCOCET PO (05:14)
[2019-11-17] MEDS ORDERED: IBUP80TA PO (05:14)
[2019-11-17] MEDS ORDERED: fentaNYL 100 MCG/2 ML INJECTION (J3010) IV PRN (05:30)
[2019-11-17] MEDS ORDERED: HYDROMORPHONE HCL 0.5 MG/ 0.5 ML SYRINGE (J1170 PER 1) IV PRN (05:30)
[2019-11-17] MEDS ORDERED: HYDROMORPHONE HCL 0.5 MG/ 0.5 ML SYRINGE (J1170 PER 1) As Ordered ONE (05:31)
[2019-11-17 06:30] VITALS: BP 106/57
[2019-11-17] MEDS: DOCUSATE SODIUM 100 MG CAP PO SCH ×2 (08:39→20:02)
[2019-11-17] MEDS: KETOROLAC 30 MG/ML VIAL (J1885) IV SCH ×3 (08:39→20:03)
[2019-11-17] MEDS: PRENATAL VITAMINS CHEWABLE TABLET PO SCH (08:40)
[2019-11-17 10:27] VITALS: BP 98/54
[2019-11-17] MEDS ORDERED: SLF 3 ML SYR IV PRN (12:15)
[2019-11-17] MEDS: SLF 3 ML SYR IV SCH ×2 (13:34→20:00)
[2019-11-17 14:22] VITALS: BP 101/52
[2019-11-17 18:12] VITALS: BP 100/50
[2019-11-17] MEDS ORDERED: diphenhydrAMINE 25 MG CAP PO PRN (20:00)
[2019-11-18] VITALS (7 sets, daily range): BP systolic 102–120; BP diastolic 53–66
[2019-11-18] MEDS: KETOROLAC 30 MG/ML VIAL (J1885) IV SCH (01:24)
[2019-11-18] MEDS: SLF 3 ML SYR IV SCH (06:00)
--- NOTE | 2019-11-18 06:57 | IPNPDOC ---
Text Note Date of Service The patient was seen on 11/18/19. NOTE PO #1 Feels well. Adequate pain management. Voiding, ambulating, tolerating regular diet, +flatus VSS, afebrile, normotensive. Fundus firm Dressing intact Lochia rubra small Routine PO care. Anticipate D/C in am VS,Fishbone, I+O VS, Fishbone, I+O Vital Signs Date Time Temp Pulse Resp B/P (MAP) Pulse Ox O2 Delivery O2 Flow Rate FiO2 11/18/19 06:00 97.9 76 18 109/53 (71) 98 11/17/19 18:12 Room Air I&O- Last 24 Hours up to 6 AM 11/18/19 06:00 Intake Total 750 ml Output Total 900 ml Balance -150 ml Maria De Jesus Hooks CNM Nov 18, 2019 06:56
[2019-11-18 07:58] LABS: HEMATOCRIT 27.3 % (36.0-47.0); MEAN CORPUSCULAR HEMOGLOBIN 28.9 pg (27.0-33.0); MEAN CORPUSCULAR HGB CONC 32.2 g/dl (32.0-36.5); MEAN CORPUSCULAR VOLUME 89.8 fl (80.0-96.0); PLATELET COUNT, AUTOMATED 202 10^3/uL (150-450); RED BLOOD COUNT 3.04 10^6/uL (4.00-5.40); WHITE BLOOD COUNT 13.2 10^3/uL (4.0-10.0)
[2019-11-18 08:13] LABS: HEMOGLOBIN 8.8 g/dl (12.0-15.5)
[2019-11-18] MEDS: PRENATAL VITAMINS CHEWABLE TABLET PO SCH (08:54)
[2019-11-18] MEDS: DOCUSATE SODIUM 100 MG CAP PO SCH ×2 (08:54→22:07)
[2019-11-18] MEDS: IBUPROFEN 800 MG TAB PO SCH ×2 (09:03→18:30)
[2019-11-19 02:00] VITALS: BP 112/70
[2019-11-19] MEDS: IBUPROFEN 800 MG TAB PO SCH ×2 (02:54→09:47)
[2019-11-19 06:00] VITALS: BP 108/68
[2019-11-19] MEDS: PRENATAL VITAMINS CHEWABLE TABLET PO SCH (09:47)
[2019-11-19] MEDS: DOCUSATE SODIUM 100 MG CAP PO SCH (09:47)
--- NOTE | 2019-11-19 11:02 | DS.PDOC ---
Discharge Summary General Date of Admission Nov 16, 2019 at 23:21 Date of Discharge 11/19/2019 Attending Physician: RAEANN ESTRELLA DO Discharge Summary PROCEDURES PERFORMED DURING STAY: Spinal anesthesia and section. ADMITTING DIAGNOSES: 1. Premature rupture of membranes at 37 weeks. 2. History of primary section DISCHARGE DIAGNOSES: 1. Premature rupture of membranes at 37 weeks. 2. History of primary section COMPLICATIONS/CHIEF COMPLAINT: Labor Check. HISTORY OF PRESENT ILLNESS: This patient is a 24-year-old who presented at 37 weeks with ruptured membranes. Her history is significant for prior section. She declined trial labor and underwent section which was uncomplicated, productive of a liveborn , weight was 7 pounds estimated blood loss was 500 mL. HOSPITAL COURSE: Unremarkable adnexa postoperative day #2, had met all discharge criteria was discharged home in stable condition. DISCHARGE MEDICATIONS: Please see below. ALLERGIES: Please see below. PHYSICAL EXAMINATION ON DISCHARGE: VITAL SIGNS: Please see below. GENERAL:. Well-appearing ABDOMINAL EXAMINATION: Soft, appropriately tender. Fundus is firm below umbilicus. Her incision was dressed EXTREMITIES: Negative calf tenderness LABORATORY DATA: Please see below. IMAGING: None ACTIVITY: As tolerated. DIET: Regular DISCHARGE PLAN: Home with follow-up in 2 weeks DISCHARGE INSTRUCTIONS: 1. Reports severe pain, heavy vaginal bleeding, fever, incisional issues. DISCHARGE CONDITION: Stable. Vital Signs/I&Os Vital Signs Date Time Temp Pulse Resp B/P (MAP) Pulse Ox O2 Delivery O2 Flow Rate FiO2 11/19/19 06:00 97.6 72 18 108/68 (81) 100 11/18/19 18:39 Room Air Discharge Medications Scheduled Docusate Sodium (Docusate Sodium) 100 Mg Capsule, 100 MG PO BID Ibuprofen (Ibuprofen) 800 Mg Tablet, 800 MG PO Q8H Scheduled PRN Oxycodone/Acetaminophen (Oxycodone-Acetaminophen 5-325) 1 Each Tablet, 1 TAB PO Q4H PRN for MILD/MODERATE PAIN (PS 1-7) Allergies Coded Allergies: No Known Allergies (Verified , 11/13/19) VERONICA ANGUIANO MD. Nov 19, 2019 11:02
== END 2019-11-19 12:30 | disposition home or self-care (01) | DRG 540 ==
LOC: M LDO 21:03 → EEVIPCON 21:03 → M LDI 23:21 → M OBS 11-17 06:05
PROVIDERS: ADMIT Obstetrics & Gynecology; ATTEND Obstetrics & Gynecology
PROC: 10D00Z1 Extraction of Products of Conception, Low, Open Approach (ICD-10-PCS; principal; 2019-11-17 03:39)
DX: O42.02 Full-term premature rupture of membranes, onset of labor within 24 hours of rupture (principal); Z3A.37 37 weeks gestation of pregnancy; Z37.0 Single live birth; O34.211 Maternal care for low transverse scar from previous cesarean delivery; O99.824 Streptococcus B carrier state complicating childbirth

== ENCOUNTER → 2020-01-18 | Outpatient (REF) | payer OTHER ==
[~2020-01-18] MED LIST changes: +DOCU100C16 PO; +IBUP80TA PO; +PERCOCET PO
[2020-01-19 12:04] LABS: CHLAMYDIA DNA AMPLIFICATION POSITIVE (NEGATIVE); GC DNA AMPLIFICATION NEGATIVE (NEGATIVE)
== END ==
LOC: M SFHCWAGY 10:14
PROVIDERS: ATTEND Obstetrics & Gynecology
DX: Z11.3 Encounter for screening for infections with a predominantly sexual mode of transmission (principal)

== ENCOUNTER → 2020-02-18 | Outpatient (REF) | payer MEDICAID ==
[~2020-02-18] MED LIST changes: +AZEL1SPR3 NARES; +BUPR150T5 PO
== END ==
LOC: M LAB REF 17:36
PROVIDERS: ATTEND Physician Assistant
DX: J02.9 Acute pharyngitis, unspecified (principal)

== ENCOUNTER 2020-02-23 11:35 | Emergency (ER) | payer MEDICAID ==
[~2020-02-23] VITALS: Ht 160 cm; Wt 90.3 kg
[~2020-02-23 11:35] MED LIST changes: -AZEL1SPR3 NARES; -BUPR150T5 PO
[2020-02-23] MEDS ORDERED: BUPR150T5 PO (11:47)
[2020-02-23] MEDS ORDERED: LEVE750T5 PO (11:47)
[2020-02-23 12:33] LABS: BASO % 0.5 % (0.0-1.0); EOS # 0.2 10^3/uL (0.0-0.5); HEMATOCRIT 39.8 % (36.0-47.0); HEMOGLOBIN 12.8 g/dl (12.0-15.5); LYMPH # 2.7 10^3/uL (1.5-5.0); LYMPH % 33.5 % (24.0-44.0); MEAN CORPUSCULAR HEMOGLOBIN 27.4 pg (27.0-33.0); MEAN CORPUSCULAR HGB CONC 32.2 g/dl (32.0-36.5); MEAN CORPUSCULAR VOLUME 85.2 fl (80.0-96.0); MONO # 0.5 10^3/uL (0.0-0.8); MONO % 5.9 % (0.0-5.0); NEUTROPHILS # 4.6 10^3/uL (1.5-8.5); NEUTROPHILS % 56.7 % (36.0-66.0); PLATELET COUNT, AUTOMATED 252 10^3/uL (150-450); RED BLOOD COUNT 4.67 10^6/uL (4.00-5.40); WHITE BLOOD COUNT 8.1 10^3/uL (4.0-10.0)
[2020-02-23 12:39] LABS: APPEARANCE, URINE CLOUDY (CLEAR); BACTERIA, URINE AUTO 2+ (NEGATIVE); BILIRUBIN, URINE AUTO NEGATIVE (NEGATIVE); BLOOD, URINE BLOOD NEGATIVE (NEGATIVE); COLOR, URINE YELLOW (YELLOW); GLUCOSE, URINE (UA) AUTO NEGATIVE (NEGATIVE); KETONE, URINE AUTO NEGATIVE (NEGATIVE); LEUKOCYTE ESTERASE, URINE AUTO 3+ (NEGATIVE); NITRITE, URINE AUTO POSITIVE (NEGATIVE); PROTEIN, URINE AUTO NEGATIVE (NEGATIVE); RBC, URINE AUTO 2 /HPF (0-3); SPECIFIC GRAVITY URINE AUTO 1.013 (1.002-1.035); SQUAMOUS EPITHELIAL CELL UR AU 8 /HPF (0-6); UROBILINOGEN, URINE AUTO 0.2 mg/dL (0.0-2.0); WBC, URINE AUTO 10 /HPF (0-3)
[2020-02-23 13:11] LABS: BLOOD UREA NITROGEN 5 MG/DL (7-18); CALCIUM LEVEL 8.9 MG/DL (8.5-10.1); CARBON DIOXIDE LEVEL 27 MEQ/L (21-32); CHLORIDE LEVEL 107 MEQ/L (98-107); CREATININE FOR GFR 0.67 MG/DL (0.55-1.30); ETHYL ALCOHOL (ETHANOL) < 0.003 % (0.000-0.010); GLOMERULAR FILTRATION RATE > 60.0 (>60); GLUCOSE, FASTING 110 MG/DL (70-100); HCG, SERUM QUANTITATIVE < 1.0 MIU/ML; MAGNESIUM LEVEL 2.1 MG/DL (1.8-2.4); POTASSIUM SERUM 3.7 MEQ/L (3.5-5.1); SODIUM LEVEL 141 MEQ/L (136-145)
[2020-02-23 13:25] LABS: AMPHETAMINES LEVEL URINE NEGATIVE (NEGATIVE); BARBITURATES URINE NEGATIVE (NEGATIVE); BENZODIAZEPINES URINE NEGATIVE (NEGATIVE); CANNABINOIDS URINE NEGATIVE (NEGATIVE); COCAINE METABOLITE URINE NEGATIVE (NEGATIVE); METHADONE URINE NEGATIVE (NEGATIVE); OPIATES URINE NEGATIVE (NEGATIVE); PHENCYCLIDINE URINE NEGATIVE (NEGATIVE)
[2020-02-23 14:00] VITALS: BP 114/63
[2020-02-23] MEDS ORDERED: IBUP-1114 PO (14:08)
[2020-02-23] MEDS ORDERED: AZEL1SPR3 NARES (14:08)
[2020-02-23] MEDS ORDERED: AUGM875T28 PO (14:08)
--- NOTE | 2020-02-23 15:51 | REP ---
MAXILLOFACIAL CT STUDY WITHOUT CONTRAST: HISTORY: Right maxillary pain. TECHNIQUE: Helical scanning is acquired. 3 mm axial images are reformatted. Coronal and sagittal MPR images are generated and reviewed. CT FINDINGS: Multiple carious teeth are noted in the mandible and maxilla bilaterally. No mandibular bony destructive lesion is seen. There is a mucous retention cyst in the left maxillary sinus and mild mucosal thickening is seen in the maxillary sinuses bilaterally. Mild mucosal thickening is visible in one of the left anterior ethmoid air cells. Otherwise, the paranasal sinuses are clear. No intraorbital lesion is seen. Visualized intracranial soft tissues are unremarkable. Parotid glands are normal and symmetric. Submandibular glands are unremarkable. There are scattered normal-sized upper cervical lymph nodes. No abnormal fluid collection or mass lesion is seen. IMPRESSION: Multiple carious teeth. Mucosal changes in the maxillary and left ethmoid air cells. Otherwise negative. Electronically Signed by Dawit Ling MD 02/23/2020 04:09 P
== END 2020-02-23 14:18 | disposition home or self-care (01) ==
LOC: M ED 11:35
DX: J32.9 Chronic sinusitis, unspecified (principal); K02.9 Dental caries, unspecified; G40.909 Epilepsy, unspecified, not intractable, without status epilepticus; J45.909 Unspecified asthma, uncomplicated; G47.30 Sleep apnea, unspecified; K21.9 Gastro-esophageal reflux disease without esophagitis; F32.9 Major depressive disorder, single episode, unspecified; F17.200 Nicotine dependence, unspecified, uncomplicated; Z79.899 Other long term (current) drug therapy
CPT/HCPCS: 36415; 70486; 80048; 80307; 83735; 84702; 85025; 99284; G0480

== ENCOUNTER → 2020-03-12 | Outpatient (REF) | payer OTHER, MEDICAID ==
[~2020-03-12] MED LIST changes: +AZEL1SPR3 NARES; +BUPR150T5 PO; +CLIN150C15 PO; +LIDO2SOL17 PO
[2020-03-12 15:25] LABS: CHLAMYDIA DNA AMPLIFICATION POSITIVE (NEGATIVE); GC DNA AMPLIFICATION POSITIVE (NEGATIVE)
== END ==
LOC: M SFHCWAGY 11:43
PROVIDERS: ATTEND Obstetrics & Gynecology
DX: Z11.3 Encounter for screening for infections with a predominantly sexual mode of transmission (principal)

== ENCOUNTER 2020-03-24 16:57 | Emergency (ER) | payer MEDICAID, OTHER ==
[~2020-03-24] VITALS: Ht 160 cm; Wt 90.7 kg
[~2020-03-24 16:57] MED LIST changes: -CLIN150C15 PO; -LIDO2SOL17 PO
[2020-03-24] MEDS ORDERED: CLIN150C14 PO (17:58)
[2020-03-24] MEDS ORDERED: LIDOCAINE VISCOUS 2% SOLN 15ML UDC SSP ONE (18:00)
[2020-03-24] MEDS ORDERED: LIDO2SOL17 PO (18:11)
[2020-03-24 18:15] VITALS: BP 124/75
== END 2020-03-24 18:17 | disposition home or self-care (01) ==
LOC: M ED 16:57
DX: K04.7 Periapical abscess without sinus (principal); S02.5XXA Fracture of tooth (traumatic), initial encounter for closed fracture; Y92.9 Unspecified place or not applicable; Y93.9 Activity, unspecified; Y99.9 Unspecified external cause status; K02.9 Dental caries, unspecified; J45.909 Unspecified asthma, uncomplicated; Z72.0 Tobacco use; Z79.899 Other long term (current) drug therapy

== ENCOUNTER → 2020-04-17 | Outpatient (REF) | payer OTHER ==
[~2020-04-17] MED LIST changes: +CLIN150C14 PO; +LIDO2SOL17 PO
[2020-04-17 16:39] LABS: CHLAMYDIA DNA AMPLIFICATION NEGATIVE (NEGATIVE); GC DNA AMPLIFICATION NEGATIVE (NEGATIVE)
== END ==
LOC: M SFHCWAGY 14:38
PROVIDERS: ATTEND Obstetrics & Gynecology
DX: A54.9 Gonococcal infection, unspecified (principal)

== ENCOUNTER → 2020-04-21 | Emergency (ER) | payer OTHER ==
[2020-05-17 11:58] LABS: APPEARANCE, URINE CLEAR (CLEAR); BACTERIA, URINE AUTO 2+ (NEGATIVE); BILIRUBIN, URINE AUTO NEGATIVE (NEGATIVE); BLOOD, URINE BLOOD NEGATIVE (NEGATIVE); COLOR, URINE YELLOW (YELLOW); GLUCOSE, URINE (UA) AUTO NEGATIVE (NEGATIVE); KETONE, URINE AUTO NEGATIVE (NEGATIVE); LEUKOCYTE ESTERASE, URINE AUTO 1+ (NEGATIVE); MUCUS, URINE SMALL (NEGATIVE); NITRITE, URINE AUTO NEGATIVE (NEGATIVE); PROTEIN, URINE AUTO NEGATIVE (NEGATIVE); RBC, URINE AUTO 1 /HPF (0-3); SPECIFIC GRAVITY URINE AUTO 1.005 (1.002-1.035); SQUAMOUS EPITHELIAL CELL UR AU 1 /HPF (0-6); UROBILINOGEN, URINE AUTO 0.2 mg/dL (0.0-2.0); WBC, URINE AUTO 11 /HPF (0-3)
[2020-05-17 15:44] LABS: BASO # 0.1 10^3/uL (0.0-0.2); BASO % 0.5 % (0.0-1.0); EOS # 0.2 10^3/uL (0.0-0.5); EOS % 1.9 % (0.0-3.0); HEMATOCRIT 37.4 % (36.0-47.0); HEMOGLOBIN 11.9 g/dl (12.0-15.5); LYMPH % 27.5 % (24.0-44.0); MEAN CORPUSCULAR HEMOGLOBIN 27.5 pg (27.0-33.0); MEAN CORPUSCULAR HGB CONC 31.8 g/dl (32.0-36.5); MEAN CORPUSCULAR VOLUME 86.4 fl (80.0-96.0); MONO # 0.8 10^3/uL (0.0-0.8); MONO % 7.1 % (0.0-5.0); NEUTROPHILS # 6.9 10^3/uL (1.5-8.5); NEUTROPHILS % 62.6 % (36.0-66.0); PLATELET COUNT, AUTOMATED 231 10^3/uL (150-450); RED BLOOD COUNT 4.33 10^6/uL (4.00-5.40)
[2020-05-28 10:20] LABS: BLOOD UREA NITROGEN 5 MG/DL (7-18); CREATININE FOR GFR 0.76 MG/DL (0.55-1.30); GLOMERULAR FILTRATION RATE > 60.0 (>60); GLUCOSE, FASTING 94 MG/DL (70-100)
[2020-05-28 10:21] LABS: ALBUMIN 3.8 GM/DL (3.2-5.2); ALT/SGPT 37 IU/L (0-32); BILIRUBIN,DIRECT 0.1 MG/DL (0.0-0.2); BILIRUBIN,TOTAL 0.4 MG/DL (0.2-1.0); CALCIUM LEVEL 8.9 MG/DL (8.5-10.1); CARBON DIOXIDE LEVEL 24 mmol/L (20-29); CHLORIDE LEVEL 109 MEQ/L (98-107); MAGNESIUM LEVEL 1.9 MG/DL (1.8-2.4); PHOSPHORUS LEVEL 3.6 MG/DL (2.5-4.9); POTASSIUM SERUM 3.3 MEQ/L (3.5-5.1); SODIUM LEVEL 142 MEQ/L (136-145); TOTAL PROTEIN 7.4 GM/DL (6.4-8.2)
[2020-05-28 10:22] LABS: HCG, SERUM QUALITATIVE NEGATIVE (NEGATIVE)
[2020-05-28 10:23] LABS: AMPHETAMINES LEVEL URINE NEGATIVE (NEGATIVE); BARBITURATES URINE NEGATIVE (NEGATIVE); BENZODIAZEPINES URINE NEGATIVE (NEGATIVE); CANNABINOIDS URINE NEGATIVE (NEGATIVE); COCAINE METABOLITE URINE NEGATIVE (NEGATIVE); METHADONE URINE NEGATIVE (NEGATIVE); OPIATES URINE NEGATIVE (NEGATIVE); PHENCYCLIDINE URINE NEGATIVE (NEGATIVE)
--- NOTE | 2020-06-13 16:10 | ECGEPIP ---
SINUS RHYTHM NONSPECIFIC ST & T-WAVE CHANGES SEE SCANNED DOWNTIME REPORT MTDD
== END | disposition left against medical advice (07) ==
LOC: M ED 12:10
DX: R56.9 Unspecified convulsions (principal); F31.9 Bipolar disorder, unspecified; I10 Essential (primary) hypertension; Z53.9 Procedure and treatment not carried out, unspecified reason; Z79.899 Other long term (current) drug therapy

== ENCOUNTER 2020-08-12 10:41 | Emergency (ER) | payer OTHER ==
[~2020-08-12] VITALS: Ht 154.9 cm; Wt 92.4 kg
--- NOTE | 2020-08-12 13:09 | REP ---
INDICATION: plantar foot pain COMPARISON: None. TECHNIQUE: Four views left foot. FINDINGS: There is no evidence of acute fracture, dislocation, or intrinsic bone disease.A tiny radiodensity between the bases of the 2nd and 3rd proximal phalanges on a single view is not felt to represent an avulsion fracture. There is an accessory ossicle at the medial aspect of the navicular bone. The joint spaces are unremarkable. IMPRESSION: No fracture or dislocation. <Electronically signed by Harry Trimble > 08/12/20 [id number]
--- NOTE | 2020-08-12 14:17 | REP ---
INDICATION: reported cold L foot. COMPARISON: None TECHNIQUE: Real time trimble scale and Duplex Doppler evaluation of the left lower extremity arterial vasculature using linear high frequency transducer. FINDINGS: The ankle to brachial index of the left lower extremity is 1.3. Duplex doppler interrogation demonstrates normal triphasic wave patterns and normal flow velocities from the common femoral artery through the popliteal and calf arteries. There is no occlusion or stenosis. PSV(cm/sec) Common femoral artery: 142.7 cm/s Profunda femoris artery: 89 cm/s Proximal superficial femoral artery: 131 cm/s Mid superficial femoral artery: 114 cm/s Distal superficial femoral artery: 60 cm/s Popliteal artery: 52 cm/s Proximal ANUSHA: 47 cm/s Tibioperoneal trunk: 55 cm/s Proximal [employer]: 47 cm/s Distal [employer] SALES [employer]: 39 cm/s Distal ANUSHA: 45 cm/s IMPRESSION: No Duplex Doppler sonographic evidence of hemodynamically significant stenosis of the left lower extremity arterial system. <Electronically signed by Harry Trimble > 08/12/20 [id number]
--- NOTE | 2020-08-12 14:18 | REP ---
INDICATION: Left plantar foot pain, reports 2 "nodules" to foot. COMPARISON: None. TECHNIQUE: Real-time sonographic evaluation of left plantar soft tissues performed at the site of reported palpable lumps. FINDINGS: No cystic or solid nodule is seen sonographically. IMPRESSION: No cystic or solid nodule in the left plantar soft tissues. <Electronically signed by Harry Trimble > 08/12/20 [id number]
[2020-08-12 14:49] VITALS: BP 135/77
== END 2020-08-12 14:49 | disposition home or self-care (01) ==
LOC: M ED 10:41
DX: M72.2 Plantar fascial fibromatosis (principal); F17.200 Nicotine dependence, unspecified, uncomplicated; Z79.899 Other long term (current) drug therapy

== ENCOUNTER → 2020-11-21 | Outpatient (REF) | payer OTHER ==
[~2020-11-21] MED LIST changes: -CLIN150C14 PO; +CLIN150C15 PO
== END ==
LOC: M SFHCWAGY 18:31
PROVIDERS: ATTEND Nurse Practitioner Family
DX: Z11.3 Encounter for screening for infections with a predominantly sexual mode of transmission (principal)

== ENCOUNTER → 2021-11-27 | Outpatient (REF) | payer OTHER ==
[~2021-11-27] MED LIST changes: -CLIN150C15 PO; +CLIN150C17 PO
== END ==
LOC: M LAB REF 22:16
PROVIDERS: ATTEND Physician Assistant Medical
DX: L73.9 Follicular disorder, unspecified (principal)

== ENCOUNTER 2021-12-23 16:57 | Emergency (ER) | payer OTHER ==
[~2021-12-23] VITALS: Ht 162.6 cm; Wt 94.1 kg
[2021-12-23 17:05] VITALS: BP 158/81
[2021-12-23] MEDS ORDERED: BUPR150T12 (17:13)
== END 2021-12-23 22:55 | disposition home or self-care (01) ==
LOC: EDBD 16:57 → M ED 16:57
DX: Z04.1 Encounter for examination and observation following transport accident (principal); N20.0 Calculus of kidney; R10.9 Unspecified abdominal pain; F41.9 Anxiety disorder, unspecified; F17.200 Nicotine dependence, unspecified, uncomplicated; K76.0 Fatty (change of) liver, not elsewhere classified; K42.9 Umbilical hernia without obstruction or gangrene; Z79.899 Other long term (current) drug therapy

== ENCOUNTER → 2022-05-15 | Outpatient (REF) | payer OTHER ==
[~2022-05-15] MED LIST changes: +BUPR-71 PO; +BUPR150T12; -BUPR150T5 PO
[2022-05-15 12:40] LABS: APPEARANCE, URINE MANUAL HAZY (CLEAR); COLOR, URINE MANUAL YELLOW (YELLOW)
[2022-05-15 12:41] LABS: BILIRUBIN, URINE MANUAL NEGATIVE (NEGATIVE); BLOOD URINE MANUAL POSITIVE (NEGATIVE); GLUCOSE, URINE (UA) MANUAL NEGATIVE (NEGATIVE); KETONE, URINE MANUAL NEGATIVE (NEGATIVE); LEUKOCYTE ESTERASE, URINE MAN POSITIVE (NEGATIVE); NITRITE, URINE MANUAL POSITIVE (NEGATIVE); PH,URINE MAN 5.5 UNITS (5.0 - 7.0); PROTEIN, URINE MANUAL NEGATIVE (NEGATIVE); UROBILINOGEN, URINE MANUAL NORMAL (NORMAL)
[2022-05-15 12:42] LABS: URINE PREG TEST NEGATIVE (NEGATIVE)
[2022-05-15 14:17] LABS: BACTERIA, URINE LARGE AMOUNT; HYALINE CAST, URINE NONE SEEN /lpf (0-1); SQUAMOUS EPITHELIAL CELL URINE MOD AMOUNT /hpf (SMALL AMT); TRANSITIONAL EPI CELLS, URINE SMALL AMOUNT /hpf
[2022-05-15 14:18] LABS: MUCUS, URINE SMALL AMOUNT (NEGATIVE)
== END ==
LOC: M LAB REF 12:02
PROVIDERS: ATTEND Physician Assistant
DX: N39.0 Urinary tract infection, site not specified (principal)

== ENCOUNTER 2023-01-21 11:08 | Emergency (ER) | payer OTHER ==
[~2023-01-21] VITALS: Ht 160 cm; Wt 87.5 kg
[~2023-01-21 11:08] MED LIST changes: +LIDO15SO PO; -LIDO2SOL17 PO
[2023-01-21 14:07] VITALS: BP 117/54
== END 2023-01-21 14:07 | disposition left against medical advice (07) ==
LOC: M ED 11:08
DX: O99.351 Diseases of the nervous system complicating pregnancy, first trimester (principal); Z3A.08 8 weeks gestation of pregnancy; O20.8 Other hemorrhage in early pregnancy

== ENCOUNTER → 2023-02-12 | Outpatient (CLI) | payer OTHER ==
[2023-02-12 16:35] LABS: HEMATOCRIT 39.1 % (36.0-47.0); HEMOGLOBIN 12.9 g/dl (12.0-15.5); MEAN CORPUSCULAR HEMOGLOBIN 29.5 pg (27.0-33.0); MEAN CORPUSCULAR VOLUME 89.5 fl (80.0-96.0); PLATELET COUNT, AUTOMATED 240 10^3/uL (150-450); RED BLOOD COUNT 4.37 10^6/uL (4.00-5.40); WHITE BLOOD COUNT 10.5 10^3/uL (4.0-10.0)
[2023-02-12 17:01] LABS: THYROID STIMULATING HORMONE 1.834 uIU/ML (0.55-4.78)
[2023-02-12 17:31] LABS: HIV 1&2 SCREEN NEGATIVE (NEGATIVE)
[2023-02-12 17:35] LABS: GC DNA AMPLIFICATION NEGATIVE (NEGATIVE)
== END ==
LOC: M PLALAB 14:06
PROVIDERS: ATTEND Advanced Practice Midwife
DX: Z34.91 Encounter for supervision of normal pregnancy, unspecified, first trimester (principal)

== ENCOUNTER → 2023-03-16 | Outpatient (CLI) | payer OTHER | LOC: M WHC 13:35 | PROVIDERS: ATTEND Obstetrics & Gynecology | DX: O34.211 Maternal care for low transverse scar from previous cesarean delivery (principal); Z3A.16 16 weeks gestation of pregnancy ==

== ENCOUNTER → 2023-04-06 | Outpatient (CLI) | payer OTHER | LOC: M WHC 13:12 | PROVIDERS: ATTEND Obstetrics & Gynecology | DX: Z34.92 Encounter for supervision of normal pregnancy, unspecified, second trimester (principal) ==

== ENCOUNTER → 2023-04-26 | Outpatient (CLI) | payer OTHER | LOC: M WHC 08:13 | PROVIDERS: ATTEND Advanced Practice Midwife | DX: Z34.82 Encounter for supervision of other normal pregnancy, second trimester (principal) ==

== ENCOUNTER → 2023-05-18 | Outpatient (CLI) | payer OTHER ==
[~2023-05-18] MED LIST changes: +MAGN300C PO
== END ==
LOC: M WHC 09:30
PROVIDERS: ATTEND Advanced Practice Midwife
DX: Z34.92 Encounter for supervision of normal pregnancy, unspecified, second trimester (principal); Z53.9 Procedure and treatment not carried out, unspecified reason

== ENCOUNTER 2023-05-20 13:47 | Outpatient (CLI) | payer OTHER ==
[~2023-05-20] VITALS: Ht 162.6 cm; Wt 88.2 kg
[~2023-05-20 13:47] MED LIST changes: -MAGN300C PO
[2023-05-20 14:00] VITALS: BP 138/76; O2SAT 99
[2023-05-20] MEDS ORDERED: MAGN300C PO (14:24)
[2023-05-20] MEDS ORDERED: PRENTAB9 PO (14:24)
[2023-05-20] MEDS ORDERED: HOME MED LIST COMPLETE! XX SCH (14:25)
[2023-05-20 14:33] VITALS: BP 132/63
== END 2023-05-20 15:10 | disposition home or self-care (01) ==
LOC: M LDO 13:47
PROVIDERS: ATTEND Specialist
DX: O47.02 False labor before 37 completed weeks of gestation, second trimester (principal); O34.218 Maternal care for other type scar from previous cesarean delivery; O99.342 Other mental disorders complicating pregnancy, second trimester; F32.A Depression, unspecified; Z3A.25 25 weeks gestation of pregnancy
CPT/HCPCS: 59025; G0463

== ENCOUNTER → 2023-06-08 | Outpatient (CLI) | payer MEDICAID, OTHER ==
[~2023-06-08] MED LIST changes: +MAGN300C PO
[2023-06-08 14:14] LABS: HEMATOCRIT 30.4 % (36.0-47.0); HEMOGLOBIN 9.9 g/dl (12.0-15.5); MEAN CORPUSCULAR HEMOGLOBIN 30.9 pg (27.0-33.0); MEAN CORPUSCULAR HGB CONC 32.6 g/dl (32.0-36.5); PLATELET COUNT, AUTOMATED 206 10^3/uL (150-450)
== END ==
LOC: M PLALAB 09:21
PROVIDERS: ATTEND Advanced Practice Midwife
DX: Z34.92 Encounter for supervision of normal pregnancy, unspecified, second trimester (principal)

== ENCOUNTER → 2023-06-11 | Outpatient (CLI) | payer MEDICAID, OTHER | LOC: M WHC 10:13 | PROVIDERS: ATTEND Advanced Practice Midwife | DX: Z36.2 Encounter for other antenatal screening follow-up (principal); Z3A.20 20 weeks gestation of pregnancy ==

== ENCOUNTER 2023-07-24 15:35 | Outpatient (CLI) | payer OTHER ==
[~2023-07-24] VITALS: Ht 160 cm; Wt 90.0 kg
[2023-07-24] MEDS ORDERED: IRON65TA2 PO (15:54)
[2023-07-24] MEDS ORDERED: ACET-683 PO (15:54)
[2023-07-24 15:55] VITALS: BP 145/88
== END 2023-07-24 17:05 | disposition home or self-care (01) ==
LOC: M LDO 15:35
PROVIDERS: ATTEND Specialist
DX: O26.893 Other specified pregnancy related conditions, third trimester (principal); N89.8 Other specified noninflammatory disorders of vagina; O99.353 Diseases of the nervous system complicating pregnancy, third trimester; G40.89 Other seizures; O99.343 Other mental disorders complicating pregnancy, third trimester; F32.A Depression, unspecified; O34.211 Maternal care for low transverse scar from previous cesarean delivery; O99.810 Abnormal glucose complicating pregnancy; Z3A.34 34 weeks gestation of pregnancy; O09.293 Supervision of pregnancy with other poor reproductive or obstetric history, third trimester; Z91.199 Patient's noncompliance with other medical treatment and regimen due to unspecified reason
CPT/HCPCS: 59025; 87081; G0463

== ENCOUNTER → 2023-08-23 | Outpatient (CLI) | payer OTHER ==
[~2023-08-23] MED LIST changes: +ACET-683 PO; +IRON65TA2 PO; +KEPP250T5 PO
== END ==
LOC: M RAD 11:43
PROVIDERS: ATTEND Specialist
DX: O90.2 Hematoma of obstetric wound (principal)

== ENCOUNTER → 2023-08-25 | Outpatient (REF) | payer OTHER | LOC: M LAB REF 12:01 | PROVIDERS: ATTEND Physician Assistant | DX: J02.9 Acute pharyngitis, unspecified (principal) ==

== ENCOUNTER 2023-09-14 10:02 | Emergency (ER) | payer OTHER ==
[~2023-09-14] VITALS: Ht 162.6 cm; Wt 75.9 kg
[2023-09-14] MEDS ORDERED: NAPR-837 PO (12:25)
[2023-09-14 12:40] VITALS: BP 137/69; TEMP 96.9; O2SAT 98
== END 2023-09-14 12:41 | disposition home or self-care (01) ==
LOC: EDBD 10:02 → M ED 10:02
DX: S40.022A Contusion of left upper arm, initial encounter (principal); S16.1XXA Strain of muscle, fascia and tendon at neck level, initial encounter; V49.40XA Driver injured in collision with unspecified motor vehicles in traffic accident, initial encounter; F17.200 Nicotine dependence, unspecified, uncomplicated; Y92.410 Unspecified street and highway as the place of occurrence of the external cause; Y93.89 Activity, other specified; Y99.9 Unspecified external cause status; Z79.1 Long term (current) use of non-steroidal anti-inflammatories (NSAID); Z79.899 Other long term (current) drug therapy

== ENCOUNTER → 2023-10-13 | Outpatient (REF) | payer OTHER ==
[~2023-10-13] MED LIST changes: +NAPR-837 PO
== END ==
LOC: M PLALAB 11:05
PROVIDERS: ATTEND Advanced Practice Midwife
DX: Z72.51 High risk heterosexual behavior (principal)

== ENCOUNTER 2024-01-08 17:06 | Emergency (ER) | payer OTHER ==
[~2024-01-08] VITALS: Ht 157.5 cm; Wt 77.3 kg
[~2024-01-08 17:06] MED LIST changes: -LIDO15SO PO; +LIDO15SO8 PO
[2024-01-08 17:24] VITALS: BP 146/99; TEMP 97.5; O2SAT 97
[2024-01-08 18:34] LABS: BASO % 0.3 % (0.0-1.0); EOS # 0.1 10^3/uL (0.0-0.5); HEMOGLOBIN 12.2 g/dl (12.0-15.5); LYMPH % 22.5 % (24.0-44.0); MEAN CORPUSCULAR HEMOGLOBIN 26.3 pg (27.0-33.0); MEAN CORPUSCULAR HGB CONC 32.1 g/dl (32.0-36.5); MEAN CORPUSCULAR VOLUME 82.1 fl (80.0-96.0); MONO # 0.6 10^3/uL (0.0-0.8); MONO % 6.3 % (2.0-8.0); NEUTROPHILS % 69.6 % (36.0-66.0); PLATELET COUNT, AUTOMATED 249 10^3/uL (150-450); RED BLOOD COUNT 4.63 10^6/uL (4.00-5.40); WHITE BLOOD COUNT 8.7 10^3/uL (4.0-10.0)
[2024-01-08 19:26] LABS: LIPASE 45 U/L (12-53)
[2024-01-08 19:29] LABS: ALBUMIN 3.9 G/DL (3.2-5.2); ALKALINE PHOSPHATASE 105 U/L (46-116); ALT/SGPT 43 U/L (7.0-40); AST/SGOT 30 U/L (<34); BILIRUBIN,DIRECT < 0.1 MG/DL (<0.4); BILIRUBIN,TOTAL 0.4 MG/DL (0.3-1.2); BLOOD UREA NITROGEN 7 MG/DL (9-23); CALCIUM LEVEL 9.7 MG/DL (8.5-10.1); CARBON DIOXIDE LEVEL 26 MMOL/L (20-31); CHLORIDE LEVEL 105 MMOL/L (98-107); CREATININE FOR GFR 0.53 MG/DL (0.55-1.30); GLOMERULAR FILTRATION RATE > 60.0 (>60); GLUCOSE, FASTING 131 MG/DL (60-100); POTASSIUM SERUM 3.7 MMOL/L (3.5-5.1); SODIUM LEVEL 139 MMOL/L (136-145); TOTAL PROTEIN 7.8 G/DL (5.7-8.2)
[2024-01-08 19:49] LABS: HCG, SERUM QUALITATIVE NEGATIVE (NEGATIVE)
[2024-01-08] MEDS: NS 1,000 ML IV ONE (20:03)
[2024-01-08] MEDS: KETOROLAC 30 MG/ML 1ML VIAL IV ONE (20:03)
[2024-01-08] MEDS: ONDANSETRON 4MG 2ML VIAL IV ONE (20:04)
== END 2024-01-08 21:32 | disposition home or self-care (01) ==
LOC: M ED 17:06 → EDBD 17:06 → M ED 21:32
DX: R10.9 Unspecified abdominal pain (principal); Z53.20 Procedure and treatment not carried out because of patient's decision for unspecified reasons; R11.0 Nausea; K21.9 Gastro-esophageal reflux disease without esophagitis
CPT/HCPCS: 36415; 74176; 80048; 80076; 81001; 83690; 84703; 85025; 87088; 87186; 96361; 96374; 96375; 99284; J1885; J2405

== ENCOUNTER → 2024-01-20 | Outpatient (CLI) | payer OTHER ==
[2024-01-20 11:28] LABS: BASO % 0.4 % (0.0-1.0); EOS # 0.1 10^3/uL (0.0-0.5); EOS % 1.7 % (0.0-3.0); HEMATOCRIT 37.8 % (36.0-47.0); HEMOGLOBIN 11.8 g/dl (12.0-15.5); LYMPH # 2.3 10^3/uL (1.5-5.0); LYMPH % 32.8 % (24.0-44.0); MEAN CORPUSCULAR HEMOGLOBIN 26.4 pg (27.0-33.0); MEAN CORPUSCULAR HGB CONC 31.2 g/dl (32.0-36.5); MEAN CORPUSCULAR VOLUME 84.6 fl (80.0-96.0); MONO # 0.6 10^3/uL (0.0-0.8); MONO % 7.8 % (2.0-8.0); PLATELET COUNT, AUTOMATED 249 10^3/uL (150-450); RED BLOOD COUNT 4.47 10^6/uL (4.00-5.40)
[2024-01-20 11:54] LABS: ALBUMIN 3.7 G/DL (3.2-5.2); ALKALINE PHOSPHATASE 99 U/L (46-116); ALT/SGPT 33 U/L (7.0-40); AST/SGOT 20 U/L (<34); BILIRUBIN,TOTAL 0.4 MG/DL (0.3-1.2); BLOOD UREA NITROGEN 9 MG/DL (9-23); CALCIUM LEVEL 9.4 MG/DL (8.5-10.1); CARBON DIOXIDE LEVEL 26 MMOL/L (20-31); CHLORIDE LEVEL 105 MMOL/L (98-107); CREATININE FOR GFR 0.59 MG/DL (0.55-1.30); GLOMERULAR FILTRATION RATE > 60.0 (>60); GLUCOSE, FASTING 120 MG/DL (60-100); SODIUM LEVEL 138 MMOL/L (136-145); TOTAL PROTEIN 7.3 G/DL (5.7-8.2)
== END ==
LOC: M LAB 10:28
PROVIDERS: ATTEND Internal Medicine
DX: Z00.00 Encounter for general adult medical examination without abnormal findings (principal)

== ENCOUNTER 2024-02-06 23:08 | Emergency (ER) | payer OTHER ==
[~2024-02-06] VITALS: Ht 167.6 cm; Wt 89.3 kg
[2024-02-06 23:09] VITALS: TEMP 97.6
[2024-02-07 02:40] VITALS: BP 119/61; O2SAT 100
== END 2024-02-07 02:54 | disposition left against medical advice (07) ==
LOC: M ED 23:08
DX: M27.2 Inflammatory conditions of jaws (principal); G40.909 Epilepsy, unspecified, not intractable, without status epilepticus; F17.200 Nicotine dependence, unspecified, uncomplicated; Z53.9 Procedure and treatment not carried out, unspecified reason

== ENCOUNTER → 2024-06-16 | Outpatient (CLI) | payer OTHER | LOC: M WUC 10:33 | PROVIDERS: ATTEND Physician Assistant | DX: M25.572 Pain in left ankle and joints of left foot (principal) ==

== ENCOUNTER → 2024-07-07 | Outpatient (CLI) | payer OTHER | LOC: M PLAIMG 06:45 | PROVIDERS: ATTEND Physical Medicine & Rehabilitation | DX: M54.2 Cervicalgia (principal) ==

== ENCOUNTER → 2024-11-19 | Outpatient (REF) | payer OTHER | LOC: M LAB REF 17:15 | PROVIDERS: ATTEND Physician Assistant Medical | DX: J02.9 Acute pharyngitis, unspecified (principal) ==

== ENCOUNTER 2024-11-24 14:46 | Inpatient (IN) | payer OTHER ==
[~2024-11-24] VITALS: Ht 160 cm; Wt 87.4 kg
[2024-11-24] MEDS ORDERED: PRED20TA (15:09)
[2024-11-24] MEDS ORDERED: AZIT-12 (15:09)
[2024-11-24 15:57] LABS: BASO # 0.1 10^3/uL (0.0-0.2); BASO % 0.7 % (0.0-1.0); EOS # 0.2 10^3/uL (0.0-0.5); EOS % 2.4 % (0.0-3.0); HEMATOCRIT 39.4 % (36.0-47.0); HEMOGLOBIN 12.6 g/dl (12.0-15.5); LYMPH # 2.4 10^3/uL (1.5-5.0); LYMPH % 31.5 % (24.0-44.0); MEAN CORPUSCULAR HEMOGLOBIN 28.1 pg (27.0-33.0); MEAN CORPUSCULAR VOLUME 87.9 fl (80.0-96.0); MONO # 0.5 10^3/uL (0.0-0.8); MONO % 6.7 % (2.0-8.0); NEUTROPHILS # 4.4 10^3/uL (1.5-8.5); PLATELET COUNT, AUTOMATED 330 10^3/uL (150-450); RED BLOOD COUNT 4.48 10^6/uL (4.00-5.40); WHITE BLOOD COUNT 7.6 10^3/uL (4.0-10.0)
[2024-11-24 16:01] LABS: ERYTHROCYTE SEDIMENTATION RATE 80 mm/hr (0-20)
[2024-11-24 16:10] LABS: INR 1.09; PARTIAL THROMBOPLASTIN TIME 29.8 SECONDS (24.8-34.2); PROTHROMBIN TIME 14.4 SECONDS (12.5-14.5)
[2024-11-24 16:36] LABS: ALBUMIN 3.6 G/DL (3.2-5.2); ALKALINE PHOSPHATASE 93 U/L (35-104); ALT/SGPT 47 U/L (7.0-40); AST/SGOT 37 U/L (<34); BILIRUBIN,DIRECT 0.1 MG/DL (<0.4); BILIRUBIN,TOTAL 0.4 MG/DL (0.3-1.2); BLOOD UREA NITROGEN 7 MG/DL (9-23); C REACTIVE PROTEIN QUANTITATIV 3.92 MG/DL (<1.0); CALCIUM LEVEL 9.6 MG/DL (8.5-10.1); CARBON DIOXIDE LEVEL 31 MMOL/L (20-31); CHLORIDE LEVEL 101 MMOL/L (98-107); GLOMERULAR FILTRATION RATE > 60.0 (>60); GLUCOSE, FASTING 105 MG/DL (60-100); POTASSIUM SERUM 3.6 MMOL/L (3.5-5.1); SODIUM LEVEL 141 MMOL/L (136-145); TOTAL PROTEIN 7.9 G/DL (5.7-8.2)
[2024-11-24] MEDS ORDERED: ISOVUE-370 76% 100ML VIAL As Ordered ONE (17:11)
[2024-11-24 17:12] LABS: PROCALCITONIN 0.05 ng/ml
[2024-11-24] MEDS: AMPICILLIN SOD/SULBACTAM SOD 3 GM in DEXTROSE 5% (D5W) MINI-BAG PLU 100 ML IV ONE (19:15)
[2024-11-24] MEDS: dexAMETHasone 20MG/5ML VIAL IV ONE (19:15)
[2024-11-24] MEDS ORDERED: LEVO25TA5 PO (19:29)
[2024-11-24] MEDS ORDERED: IBUP200T46 PO (19:29)
[2024-11-24] MEDS ORDERED: FERR325T3 PO (19:29)
[2024-11-24] MEDS ORDERED: LEVE250T5 PO (19:29)
[2024-11-24] MEDS ORDERED: MED REC COMMENT (19:30)
[2024-11-24] MEDS ORDERED: HOME MED LIST COMPLETE! XX SCH (19:30)
[2024-11-24] MEDS ORDERED: MOM 30ML SUSPENSION UDC PO PRN (20:45)
[2024-11-24] MEDS ORDERED: ALBUTEROL 90 MCG/ACT 8GM HFA INHALER INH PRN (20:45)
[2024-11-24] MEDS ORDERED: MAALOX 30 ML SUSP *UDC PO PRN (20:45)
[2024-11-24] MEDS ORDERED: KETOROLAC 30 MG/ML 1ML VIAL IV PRN (20:45)
[2024-11-24] MEDS: levETIRAcetam 250MG TABLET (KEPPRA) PO SCH (21:19)
[2024-11-24] MEDS: DOCUSATE SODIUM 100MG CAPSULE PO SCH (21:19)
[2024-11-25] MEDS: AMPICILLIN SOD/SULBACTAM SOD 3 GM in DEXTROSE 5% (D5W) MINI-BAG PLU 100 ML IV SCH (02:26)
[2024-11-25] MEDS: LEVOTHYROXINE 25MCG TABLET (0.025MG) PO SCH (06:33)
[2024-11-25 07:03] LABS: HEMATOCRIT 37.1 % (36.0-47.0); HEMOGLOBIN 11.8 g/dl (12.0-15.5); MEAN CORPUSCULAR HEMOGLOBIN 27.9 pg (27.0-33.0); MEAN CORPUSCULAR HGB CONC 31.8 g/dl (32.0-36.5); MEAN CORPUSCULAR VOLUME 87.7 fl (80.0-96.0); PLATELET COUNT, AUTOMATED 347 10^3/uL (150-450); RED BLOOD COUNT 4.23 10^6/uL (4.00-5.40); WHITE BLOOD COUNT 8.4 10^3/uL (4.0-10.0)
[2024-11-25 07:19] LABS: ERYTHROCYTE SEDIMENTATION RATE 73 mm/hr (0-20)
[2024-11-25 07:31] LABS: C REACTIVE PROTEIN QUANTITATIV 2.52 MG/DL (<1.0)
[2024-11-25 07:39] LABS: ALBUMIN 3.2 G/DL (3.2-5.2); ALKALINE PHOSPHATASE 86 U/L (35-104); ALT/SGPT 37 U/L (7.0-40); AST/SGOT 19 U/L (<34); BILIRUBIN,TOTAL 0.3 MG/DL (0.3-1.2); BLOOD UREA NITROGEN 9 MG/DL (9-23); CALCIUM LEVEL 9.2 MG/DL (8.5-10.1); CARBON DIOXIDE LEVEL 25 MMOL/L (20-31); CHLORIDE LEVEL 103 MMOL/L (98-107); CREATININE FOR GFR 0.48 MG/DL (0.55-1.30); GLOMERULAR FILTRATION RATE > 60.0 (>60); GLUCOSE, FASTING 147 MG/DL (60-100); MAGNESIUM LEVEL 2.1 MG/DL (1.8-2.4); POTASSIUM SERUM 4.1 MMOL/L (3.5-5.1); SODIUM LEVEL 139 MMOL/L (136-145); TOTAL PROTEIN 7.2 G/DL (5.7-8.2)
[2024-11-25] MEDS: ENOXAPARIN 40MG/0.4ML SYRINGE (J1650 PER 10MG) SC SCH (08:02)
[2024-11-25] MEDS: FERROUS SULFATE 325MG TAB PO SCH (08:03)
[2024-11-25 11:25] VITALS: BP 133/78; TEMP 98.5; O2SAT 98
[2024-11-25] MEDS: IBUPROFEN 800 MG TAB PO PRN (12:07)
[2024-11-25] MEDS: ACETAMINOPHEN 325 MG TAB PO PRN (13:56)
[2024-11-25 16:00] VITALS: BP 113/63; TEMP 99.7; O2SAT 100
[2024-11-25 21:00] VITALS: BP 125/63; TEMP 98; O2SAT 95
[2024-11-26] VITALS: BP 108/54; TEMP 98.7; O2SAT 96
[2024-11-26 04:00] VITALS: BP 101/55; TEMP 98.2; O2SAT 98
[2024-11-26 08:00] VITALS: BP 139/71; TEMP 97.8; O2SAT 98
[2024-11-26] MEDS ORDERED: AMOX875T2 PO (09:39)
[2024-11-26] MEDS ORDERED: ACET-683 PO (09:39)
[2024-11-26] MEDS ORDERED: IBUP-1022 PO ×2 (10:48→10:49)
[2024-11-26 11:55] VITALS: BP 124/63; TEMP 98.1; O2SAT 100
[2024-11-26 16:00] VITALS: BP 121/70; TEMP 98.2; O2SAT 98
== END 2024-11-26 18:45 | disposition home or self-care (01) | DRG 113 ==
LOC: M ED 14:46 → M ED INP 20:44 → M PED 11-25 11:23
PROVIDERS: ADMIT Family Medicine; ATTEND Family Medicine
DX: J36 Peritonsillar abscess (principal); E61.1 Iron deficiency; J45.909 Unspecified asthma, uncomplicated; K21.9 Gastro-esophageal reflux disease without esophagitis; G40.909 Epilepsy, unspecified, not intractable, without status epilepticus; E03.9 Hypothyroidism, unspecified; F17.290 Nicotine dependence, other tobacco product, uncomplicated; K02.9 Dental caries, unspecified; Z79.890 Hormone replacement therapy; Z79.899 Other long term (current) drug therapy; Z88.8 Allergy status to other drugs, medicaments and biological substances; Z88.6 Allergy status to analgesic agent

== ENCOUNTER → 2025-01-10 | Outpatient (CLI) | payer OTHER ==
[~2025-01-10] MED LIST changes: +AMOX875T2 PO; +AZIT-12; +FERR325T3 PO; +IBUP-1022 PO; +IBUP200T46 PO; +LEVE250T5 PO; +LEVO25TA5 PO; +MED REC COMMENT; +PRED20TA
== END ==
LOC: M RAD 12:27
PROVIDERS: ATTEND Internal Medicine
DX: E04.1 Nontoxic single thyroid nodule (principal)

== ENCOUNTER → 2025-01-17 | Outpatient (REF) | payer OTHER | LOC: M LAB REF 16:51 | PROVIDERS: ATTEND Physician Assistant | DX: B34.9 Viral infection, unspecified (principal) ==

== ENCOUNTER 2025-03-29 08:59 | Day surgery (SDC) | payer OTHER ==
[~2025-03-29] VITALS: Ht 160 cm; Wt 89.0 kg
[2025-03-29] MEDS ORDERED: LR 1,000 ML IV SCH (10:30)
[2025-03-29] MEDS ORDERED: ALPR0.5T3 PO (11:13)
[2025-03-29] MEDS ORDERED: dexAMETHasone 4 MG/ML 1 ML VIAL As Ordered ONE (13:51)
[2025-03-29] MEDS ORDERED: SUGAMMADEX SODIUM 500 MG/5 ML VIAL As Ordered ONE (13:51)
[2025-03-29] MEDS ORDERED: ROCURONIUM BROMIDE 50MG/5ML VIAL As Ordered ONE (13:51)
[2025-03-29] MEDS ORDERED: ONDANSETRON 4MG 2ML VIAL As Ordered ONE (13:51)
[2025-03-29] MEDS ORDERED: ACETAMINOPHEN 1000MG/100ML IV BAG As Ordered ONE (13:51)
[2025-03-29] MEDS ORDERED: LIDOCAINE 2% 100 MG/5 ML SDV (FOR ANES.) As Ordered ONE (13:51)
[2025-03-29] MEDS ORDERED: MIDAZOLAM INJ 2 MG/2 ML VIAL As Ordered ONE (13:52)
[2025-03-29] MEDS ORDERED: OXYMETAZOLINE 0.05% NASAL SPRAY As Ordered ONE (14:16)
[2025-03-29] MEDS: ONDANSETRON 4MG 2ML VIAL IV PRN (15:47)
[2025-03-29] MEDS: HYDROMORPHONE HCL 0.5 MG/0.5 ML SYRINGE IV PRN (15:47)
[2025-03-29 16:25] VITALS: BP 129/74; TEMP 97.3; O2SAT 98
== END 2025-03-29 16:40 | disposition home or self-care (01) ==
LOC: M SDC 08:59
PROVIDERS: ATTEND Otolaryngology
DX: J35.01 Chronic tonsillitis (principal); J35.8 Other chronic diseases of tonsils and adenoids; R56.9 Unspecified convulsions; E03.9 Hypothyroidism, unspecified; E04.1 Nontoxic single thyroid nodule; J45.909 Unspecified asthma, uncomplicated; F17.290 Nicotine dependence, other tobacco product, uncomplicated; Z79.890 Hormone replacement therapy; Z79.899 Other long term (current) drug therapy; Z88.8 Allergy status to other drugs, medicaments and biological substances; Z86.718 Personal history of other venous thrombosis and embolism
CPT/HCPCS: 42826; 81025; 88302; J0131; J1100; J1171; J2250; J2405; J3010

== ENCOUNTER → 2025-04-23 | Outpatient (REF) | payer OTHER ==
[~2025-04-23] MED LIST changes: +ALPR0.5T3 PO
[2025-04-23 12:44] LABS: APPEARANCE, URINE CLOUDY (CLEAR); BACTERIA, URINE AUTO 1+ (NEGATIVE); BILIRUBIN, URINE AUTO NEGATIVE (NEGATIVE); BLOOD, URINE BLOOD NEGATIVE (NEGATIVE); GLUCOSE, URINE (UA) AUTO NEGATIVE (NEGATIVE); KETONE, URINE AUTO NEGATIVE (NEGATIVE); LEUKOCYTE ESTERASE, URINE AUTO 3+ (NEGATIVE); MUCUS, URINE SMALL (NEGATIVE); NITRITE, URINE AUTO POSITIVE (NEGATIVE); PROTEIN, URINE AUTO NEGATIVE (NEGATIVE); RBC, URINE AUTO 11 /HPF (0-3); SPECIFIC GRAVITY URINE AUTO 1.018 (1.002-1.035); SQUAMOUS EPITHELIAL CELL UR AU 14 /HPF (0-6); UROBILINOGEN, URINE AUTO 0.2 mg/dL (0.0-2.0); WBC, URINE AUTO 65 /HPF (0-3)
[2025-04-23 14:38] LABS: Trichomonas vaginalis (AMP) POSITIVE (NEGATIVE)
[2025-04-23 15:11] LABS: GC DNA AMPLIFICATION NEGATIVE (NEGATIVE)
== END ==
LOC: M LAB REF 11:50
DX: N39.0 Urinary tract infection, site not specified (principal); Z20.2 Contact with and (suspected) exposure to infections with a predominantly sexual mode of transmission

== ENCOUNTER → 2025-05-22 | Outpatient (REF) | payer OTHER ==
[~2025-05-22] MED LIST changes: -IBUP-1022 PO; +IBUP600T42 PO
== END ==
LOC: M PLALAB 08:32
PROVIDERS: ATTEND Nurse Practitioner Family
DX: Z53.9 Procedure and treatment not carried out, unspecified reason (principal); Z34.80 Encounter for supervision of other normal pregnancy, unspecified trimester

== ENCOUNTER → 2025-06-07 | Outpatient (CLI) | payer OTHER ==
[2025-06-07 13:25] LABS: PLATELET COUNT, AUTOMATED 189 10^3/uL (150-450)
[2025-06-07 14:03] LABS: HIV 1&2 SCREEN NEGATIVE (NEGATIVE)
[2025-06-07 14:11] LABS: HEPATITIS C VIRUS ABY INDEX 0.02 INDEX (<0.8)
[2025-06-07 14:34] LABS: Trichomonas vaginalis (AMP) NOT DETECTED (NEGATIVE)
[2025-06-07 14:57] LABS: GC DNA AMPLIFICATION NEGATIVE (NEGATIVE)
== END ==
LOC: M PLALAB 09:38
PROVIDERS: ATTEND Nurse Practitioner Family
DX: Z34.80 Encounter for supervision of other normal pregnancy, unspecified trimester (principal)

== ENCOUNTER 2025-07-04 09:37 | Emergency (ER) | payer OTHER ==
[~2025-07-04] VITALS: Ht 160 cm; Wt 87.7 kg
[2025-07-04 09:47] VITALS: TEMP 97.1
[2025-07-04] MEDS ORDERED: SERT25TA21 (10:04)
[2025-07-04] MEDS: ONDANSETRON 4MG 2ML VIAL IV ONE (10:48)
[2025-07-04] MEDS: ACETAMINOPHEN *IV* 1,000 MG in IV 1 EA IV ONE (10:49)
[2025-07-04 10:59] LABS: VENOUS BASE EXCESS -3.2 (-2.0-2.0); VENOUS HCO3 22.5 MMOL/L (23.0-27.0); VENOUS O2 SATURATION 56.2 % (60.0-80.0); VENOUS PARTIAL PRESSURE CO2 43.0 mmHg (38.0-50.0); VENOUS PARTIAL PRESSURE O2 30.9 mmHg (30.0-50.0); VENOUS PH 7.337 UNITS (7.330-7.430); VENOUS STANDARD HCO3 20.9 MMOL/L; VENOUS TOTAL CO2 23.8 MMOL/L (24.0-28.0)
[2025-07-04 11:03] LABS: BASO # 0.0 10^3/uL (0.0-0.2); BASO % 0.4 % (0.0-1.0); EOS # 0.2 10^3/uL (0.0-0.5); EOS % 2.0 % (0.0-3.0); LYMPH # 1.7 10^3/uL (1.5-5.0); LYMPH % 20.2 % (24.0-44.0); MONO # 0.4 10^3/uL (0.0-0.8); MONO % 5.2 % (2.0-8.0); NEUTROPHILS # 6.1 10^3/uL (1.5-8.5); NEUTROPHILS % 71.7 % (36.0-66.0); PLATELET COUNT, AUTOMATED 191 10^3/uL (150-450)
[2025-07-04 11:31] LABS: ALT/SGPT 13 U/L (7.0-40); AST/SGOT 14 U/L (<34); CALCIUM LEVEL 8.7 MG/DL (8.5-10.1); CARBON DIOXIDE LEVEL 24 MMOL/L (20-31); CHLORIDE LEVEL 103 MMOL/L (98-107); CREATININE FOR GFR 0.49 MG/DL (0.55-1.30); GLOMERULAR FILTRATION RATE > 90.0 (>60); POTASSIUM SERUM 3.3 MMOL/L (3.5-5.1); SODIUM LEVEL 139 MMOL/L (136-145)
[2025-07-04 12:36] LABS: MAGNESIUM LEVEL 1.7 MG/DL (1.8-2.4)
[2025-07-04] MEDS: POTASSIUM CHLORIDE 10MEQ SR TABLET PO ONE (12:56)
[2025-07-04] MEDS: ONDANSETRON 4MG ORAL DISINTEGRATING TAB PO ONE (12:56)
[2025-07-04] MEDS ORDERED: ONDA-282 PO (13:36)
[2025-07-04 13:45] VITALS: BP 116/66; O2SAT 99
== END 2025-07-04 14:07 | disposition home or self-care (01) ==
LOC: M ED 09:37
DX: O99.352 Diseases of the nervous system complicating pregnancy, second trimester (principal); O99.282 Endocrine, nutritional and metabolic diseases complicating pregnancy, second trimester; E87.6 Hypokalemia; Z91.199 Patient's noncompliance with other medical treatment and regimen due to unspecified reason; Z3A.17 17 weeks gestation of pregnancy
CPT/HCPCS: 76811; 80053; 80177; 82803; 83735; 85025; 96365; 96375; 99284; J0131; J2405

== ENCOUNTER → 2025-07-17 | Outpatient (REF) | payer OTHER ==
[~2025-07-17] MED LIST changes: +ONDA-282 PO; +SERT25TA21
== END ==
LOC: M SFHCWAGY 12:42
PROVIDERS: ATTEND Advanced Practice Midwife
DX: R82.79 Other abnormal findings on microbiological examination of urine (principal)

== ENCOUNTER → 2025-08-20 | Outpatient (CLI) | payer OTHER | LOC: M WHC 08:29 | PROVIDERS: ATTEND Student in an Organized Health Care Education/Training Program | DX: Z34.80 Encounter for supervision of other normal pregnancy, unspecified trimester (principal) ==

== ENCOUNTER → 2025-09-10 | Outpatient (CLI) | payer OTHER | LOC: M RAD 11:36 | PROVIDERS: ATTEND Otolaryngology | DX: E04.1 Nontoxic single thyroid nodule (principal) ==

== ENCOUNTER → 2025-09-21 | Outpatient (REF) | payer OTHER | LOC: M LAB REF 17:09 | PROVIDERS: ATTEND Physician Assistant | DX: R30.0 Dysuria (principal) ==